=== PATIENT | female | born 1940 | race Hispanic/Latino ===

== ENCOUNTER 2017-01-07 15:11 | Inpatient (IN) | payer MEDICAID ==
[~2017-01-07] VITALS: Ht 162.6 cm; Wt 51.9 kg
[2017-01-07] VITALS (12 sets, daily range): BP systolic 85–126; BP diastolic 40–85; PULSE 80–90; RESP 14–20; O2SAT 96–100
[~2017-01-07 15:11] MED LIST: Ketamine 10 mg/mL 20 mL Inj ONE; Ondansetron 2 mg/mL 2 mL Inj ONE; Phenylephrine/NS 100 mCg/mL 10 mL Syringe IVPUSH ONE
--- NOTE | 2017-01-07 15:34 | ED.REPORT ---
HPI-General Illness Date of Service Jan 07, 2017 ED Provider: Eddie Bustillos MD Patient is a Comoran-speaking 76 year old female with a history of diabetes mellitus who presents to the ED via EMS with right hip pain after a ground level fall this afternoon. The patient tripped on a rug and landed on hardwood floor. Patient has been unable to ambulate or bear weight on her leg after the injury occurred. The patient typically ambulates steadily and does not regularly fall. She is normally self sufficient. The patient did not strike her head and denies loss of consciousness. She is not on any anticoagulating medications. Patient denies sustaining any other injuries. Nursing Notes Stated Complaint: RIGHT HIP PAIN Chief Complaint: Multiple Trauma/Fall Nursing Notes Reviewed: Yes Allergies: Coded Allergies: No Known Allergies (Verified , 01/07/17) Scheduled Cholecalciferol (Vitamin D3) (Vitamin D) 1,000 Unit Capsule 1,000 UNIT PO DAILY Glipizide (Glipizide) 10 Mg Tablet 10 MG PO BID Insulin Detemir (Levemir U100 Insulin Vial) 100 Unit/1 Ml Vial 15 UNIT SUBQ DAILY Lovastatin (Lovastatin) 20 Mg Tablet 20 MG PO HS Metformin (Metformin) 500 Mg Tablet 1,000 MG PO BID General Time Seen by MD: 15:34 Chief Complaint Other (right hip pain) Hx Obtained From: Patient Arrived By: Ambulance Sudden in Onset?: Yes Onset Occurred: Just prior to arrival Symptom Duration: Since onset Caused by: Fall on ground Location: : Hip right Quality: Painful Severity: Current: Moderate Severity: Maximum: Moderate Recent Healthcare: No recent doctor visit, No recent hospitalization Similar Sx Previous: No Past Medical History Past Medical History generally in good health Reports: Diabetes mellitus Past Surgical History left arm fracture Family History Reports: Coronary artery disease Smoking History Unknown if Ever Smoker Social History Other Social History: Good social support, Local resident Ambulatory Status Independent Review of Systems Full Review of Systems Cardiovascular: Denies: Chest pain GI: Denies: Abdominal pain Musculoskeletal: Reports: Extremity pain, Joint pain Neurologic: Denies: Change LOC, Headache Complete sys rev & neg: except as marked. Physical Exam Vital Signs Vital Signs Date Time Temp Pulse Resp B/P Pulse Ox O2 Delivery O2 Flow Rate FiO2 01/07/17 15:11 36.6 85 14 114/69 99 Room Air Initial VS: Reviewed Skin: Warm, Dry, No cyanosis Neurologic: Alert, Oriented, Nonfocal Psychiatric: Mood/affect normal, Behavior normal General/Constitutional: Awake, Alert, No acute distress Head / Eyes: Atraumatic, Normocephalic, PERRL ENT: Atraumatic, Airway patent Neck: Atraumatic, Supple, Non-tender Respiratory / Chest: Breath sounds NL, Breath sounds = bilat, No respiratory distress, No rales, No rhonchi, No wheezing, No chest tenderness, No chest wall deformity Cardiovascular: Heart rate NL, Regular rhythm, Heart sounds NL, Cap refill not delayed, Peripheral circulation NL (Good DP and PT pulses) Abdomen: Soft, Non-tender, No distention Upper Extremities Upper Extremity / MS: Atraumatic, Non-tender, No deformity Lower Extremity / Pelvis / MS: Neurologic intact, Vascular intact Right Hip: Positive: ROM reduced... (unable to flex or extend the hip), Tenderness present... (over the greater trochanter) Interpretation & Diagnostics Lab Results Interpretation Result Diagram: 01/07/17 1642 01/07/17 1642 Test 01/07/17 16:42 White Blood Count 8.0th/mm3 (3.8-10.1) Red Blood Count 4.17mil/mm3 (3.90-5.20) Hemoglobin 12.7g/dL (12.0-15.6) Hematocrit 39.3% (35.0-46.0) Mean Corpuscular Volume 94.2fL (81-100) Mean Corpuscular Hemoglobin 30.5pg (27.0-35.0) Mean Corpuscular Hemoglobin Concent 32.3% (32.0-37.0) Red Cell Distribution Width 12.5% (12.3-15.4) Platelet Count 244bil/L (150-400) Neutrophils (%) (Auto) 66.8% (40-74) Lymphocytes (%) (Auto) 23.7% (14-46) Monocytes (%) (Auto) 8.4% (4-12) Eosinophils (%) (Auto) 0.4% (0-5) Basophils (%) (Auto) 0.4% (0-3) Prothrombin Time 10.8sec (8.1-12.5) Prothromb Time International Ratio 1.01ratio Sodium Level 133mEq/L (134-144) Potassium Level 4.0mEq/L (3.5-5.2) Chloride Level 96mEq/L (97-108) Carbon Dioxide Level 21mmol/L (18-29) Blood Urea Nitrogen 17mg/dL (8-27) Creatinine 0.48mg/dL (0.57-1.00) Estimat Glomerular Filtration Rate 180mL/min (>59) Glucose Level 245mg/dL (60-99) Calcium Level 8.9mg/dL (8.5-10.1) Magnesium Level 2.1mg/dL (1.6-2.6) Total Bilirubin 0.2mg/dL (0.0-1.2) Aspartate Amino Transf (AST/SGOT) 28U/L (0-50) Alanine Aminotransferase (ALT/SGPT) 23U/L (0-32) Alkaline Phosphatase 84U/L (25-165) Total Protein 7.1g/dL (6.4-8.4) Albumin 3.5g/dL (3.4-5.0) Hold Gutierrez Top Tube Received (Received) ECG Interpretation Time: 17:45 Interpreted by: ED physician Normal ECG Interpretation: Normal ECG w/ rate of... (85), No acute ischemic changes X-Ray Chest Interpretation Chest Xray Interpretation: IMPRESSION: No acute process. Dictated by: Roosevelt Rodriguez M.D. on 01/07/2017 at 16:59 Approved by: Roosevelt Rodriguez M.D. on 01/07/2017 at 16:59 View: Portable Interpretation / Wet Read by: Interpret - Radiologist X-Ray Interpretation Xray Interpretation: IMPRESSION: Intertrochanteric hip fracture. Dictated by: Roosevelt Rodriguez M.D. on 01/07/2017 at 16:24 Approved by: Roosevelt Rodriguez M.D. on 01/07/2017 at 16:24 X-Ray Ordered: Hip right Interpretation / Wet Read by: Interpret - Radiologist Re-Eval/Medical Decision Med Decision/Clinical Course Patient is a Comoran-speaking 76 year old female with a history of diabetes mellitus who presents to the ED via EMS with right hip pain after a ground level fall this afternoon. The patient tripped on a rug and landed on hardwood floor. Patient has been unable to ambulate or bear weight on her leg after the injury occurred. The patient typically ambulates steadily and does not regularly fall. She is normally self sufficient. The patient did not strike her head and denies loss of consciousness. She is not on any anticoagulating medications. Patient denies sustaining any other injuries. Here in the emergency department the patient is afebrile, hemodynamically stable and in no significant distress though her right leg is slightly foreshortened and externally rotated. She is neurovascularly intact in the right lower extremity. On x-ray there is a comminuted, moderately displaced intertrochanteric hip fracture. No suspicious bony lesions. The visualized pelvic ring appears intact. Patient's pain was treated with IV hydromorphone and she was given Zofran for nausea. The patient was placed on maintenance fluids. Preoperative labs including CBC, CMP and coagulation studies were unremarkable. Patient was discussed with orthopedic surgery Dr. Sun who will take her for operative management later this evening. She was discussed with the admitting hospitalist and transferred in stable condition in consultation with orthopedic surgery. No evidence of significant head trauma, no evidence of acute infectious process, no evidence of other associated significant traumatic injuries. Transferred in stable condition. Source of Hx: Old records Time of Eval: 17:00 Re-Evaluation/Progress Note: Patient was informed that she sustained a hip fracture. She will need to be admitted to the hospital for surgery. Patient understands and agrees with this plan. All questions were addressed. Consultation #1: Referral / Consult Name: Luisito Sun DO Consulted With: Orthopedic Call Returned at: 16:50 Welder Fitter Apprentice: Will see patient, Agrees with eval, Agrees with plan Note: Spoke with Dr. Sun, orthopedic surgeon, about the patient's case. He agrees to take the patient to surgery. Consultation #2: Referral / Consult Name: Cordelia Ramirez DO Consulted With: Hospitalist Call Returned at: 16:55 Welder Fitter Apprentice: Will see patient, Agrees with eval, Agrees with plan, Accepts admit Note: Spoke with Dr. Ramirez, hospitalist, who agrees to accept admit. Counseled Regarding: Diagnosis, Lab results, Need for admission Discharge & Departure Primary Impression: Intertrochanteric fracture of right hip Encounter type: initial encounter Fracture type: closed Qualified Code: S72.141A - Displaced intertrochanteric fracture of right femur, initial encounter for closed fracture Additional Impressions: Fall from ground level Right hip pain Disposition: ADMITTED TO HOSPITAL Discharge Condition All VS Reviewed: Yes Condition: Stable Referrals: [facility] (PCP) Arabellaibgabe Attestation Portions of this note were transcribed by Anushka Álvarez. I, Dr. Bustillos personally performed the history, physical exam and medical decision-making; I reviewed and confirmed the accuracy of the information in the transcribed note. Signed by: Lanie Buckley, 01/08/2017 0004 copies to: [facility] Eddie Bustillos MD Jan 07, 2017 15:34 Anushka Álvarez Jan 07, 2017 16:53
[2017-01-07] MEDS ORDERED: HYDROmorphone 0.5 mg/0.5 mL iSecure Syringe IVPUSH ONE (15:50)
--- NOTE | 2017-01-07 16:26 | DRSVH ---
PROCEDURE: X-RAY RIGHT HIP COMPLETE, MINIMUM TWO VIEWS ([id number]) INDICATIONS: fall, pain TECHNIQUE: 2 views of the hip were acquired. COMPARISON: None. FINDINGS: Bones: There is a comminuted, moderately displaced intertrochanteric hip fracture. No suspicious bony lesions. The visualized pelvic ring appears intact. Soft tissues: No suspicious soft tissue calcifications or masses. IMPRESSION: Intertrochanteric hip fracture. Dictated by: Roosevetl Rodriguez M.D. on 01/07/2017 at 16:24 Approved by: Roosevelt Rodriguez M.D. on 01/07/2017 at 16:24
[2017-01-07] MEDS ORDERED: 0.9% Sodium Chloride 1,000 ML IV ONE (16:32)
[2017-01-07] MEDS ORDERED: Ondansetron 2 mg/mL 2 mL Inj IVPUSH PRN ×3 (16:35→23:00)
[2017-01-07] MEDS ORDERED: Ondansetron 2 mg/mL 2 mL Inj IVPUSH ONE (16:35)
[2017-01-07] MEDS ORDERED: Alum-Mag Hydrox-Simeth 30 mL Suspension PO PRN (16:35)
[2017-01-07 16:51] LABS: BASOPHILS % (AUTO) 0.4 % (0-3); EOSINOPHILS % (AUTO) 0.4 % (0-5); MONOCYTES % (AUTO) 8.4 % (4-12); Mean Corpuscular Hemoglobin 30.5 pg (27.0-35.0); Mean Corpuscular Volume 94.2 fL (81-100); NEUTROPHILS % (AUTO) 66.8 % (40-74); Platelet Count 244 bil/L (150-400)
--- NOTE | 2017-01-07 17:00 | DRSVH ---
PROCEDURE: X-RAY CHEST ONE VIEW, PORTABLE ([id number]) INDICATIONS: pre-op TECHNIQUE: One view of the chest was acquired. COMPARISON: [facility], , CHEST 2VW, 01/12/2015, 11:15. FINDINGS: Surgical changes and devices: None. Lungs and pleura: No pleural effusions or pneumothorax. Calcified granuloma within the right midlung laterally is unchanged. Lungs are otherwise clear. Mediastinum: Mediastinal contours appear normal. Heart size is normal. Bones and chest wall: No suspicious bony lesions. Overlying soft tissues appear unremarkable. IMPRESSION: No acute process. Dictated by: Roosevlet Rodriguez M.D. on 01/07/2017 at 16:59 Approved by: Roosevelt Rodriguez M.D. on 01/07/2017 at 16:59
[2017-01-07 17:11] LABS: INR 1.01 ratio
[2017-01-07 17:17] LABS: Magnesium 2.1 mg/dL (1.6-2.6)
--- NOTE | 2017-01-07 17:35 | PCM.HPANE ---
Patient Data Surgeon Admitting Provider: Attending Provider: Primary Care Physician:[facility] Other Provider: Reason for Visit Right Hip Pain Ht/WT & BMI Height (Feet): 5 Height (Inches): 3 Weight (Kilograms): 54.55 Body Mass Index Allergies Coded Allergies: No Known Allergies (Verified , 01/07/17) Past Anesthesia History Anesthesia History: Denies:: Abnormal Airway, Difficult Intubation Diabetes History Hx Diabetes?: Yes (IDDM) MRSA MRSA: No Medications Hypertension Medication: No Home Meds Incl Beta Dorinda: No History History of ENT Problems?: No HEENT History: Denies:: Abnormal Airway Difficult Intubation Denture Type: None Teeth Condition: Within Normal Limits Hx of Heart Problems?: No Cardiovascular History: Denies:: AICD Abdominal Aortic Aneurism Atrial Fibrillation Cardiac Surgery Chest Pain Congestive Heart Failure Coronary Artery Disease Edema Heart Murmur Hypertension Irregular Heartbeat Pacemaker Peripheral Vascular Rheumatic Fever Thrombophlebitis Valvular Heart Disease Hx of Respiratory Problem?: No Respiratory History: Denies:: Asthma COPD Chest Surgery Cough Dyspnea Emphysema Hemoptysis Oxygen Administration Pneumonia Pulmonary Embolism Tuberculosis Use of C-PAP Machine Use of Inhalers / NEBS Hx Neurologic Problems?: No Neurological History: Denies:: Alzheimer's Disease CVA Dementia Dizziness Headaches Multiple Sclerosis Parkinson's Disease Peripheral Neuropathy Seizures TIA Hx of GI Problems?: No Gastrointestinal History: Denies:: Cirrhosis Diverticulitis Gall Bladder Disease Gastroesphageal Reflux Gastrointestinal Bleeding Heartburn Hepatitis Hiatal Hernia Liver Disease Rectal Bleeding Hx of Problems?: No Genitourinary History: Denies:: HX of Hemodialysis Kidney Stones Urinary Tract Infection HX of Peritoneal Dialysis: No Female Hx: Denies:: Currently Endometriosis Pelvic Inflammatory Problems with Breasts? Skin History: Denies:: History Skin Disorders? Pressure Ulcers Hx Musculoskeletal Problems?: Yes Musculoskeletal History: Denies:: Back Injury Degenerative Joint Fibromyalgia Joint Replacement Musculoskeletal Trauma Myasthenia Gravis Osteoarthritis Rheumatoid Arthritis Systemic Lupus Other History/Comment hip fx Hx of Psycho/Social Problems?: No Psycho Social History: Denies:: Anxiety Bipolar Disorder Hx Depression Suicide Attempt Hx Surgeries?: Yes (LT ARM FX AND SHOULDER, ) Hx Diabetes: No (IDDM) Hx Alcohol Use: NoHx Substance Use: No Stop/Bang Treated for Sleep Apnea?: No Do You Have a CPAP Machine?: No Risk Assessment Category Category 1A: Patient has history of documented sleep apnea, and HAS NOT received any narcotic, sedative or anesthesia administration during this stay. Category 1B: Patient has history of documented sleep apnea, and HAS received any narcotic , sedative or anesthesia administration during this stay Category 2: Patient has SUSPECTED Obstructive Sleep Apnea, and HAS received any narcotic , sedative or anesthesia administration during this stay. Category 3: Patient has SUSPECTED Obstructive Sleep Apnea and HAS NOT received narcotic, sedative or anesthesia administration during this stay. Category 4: Outpatient in Procedural Areas with known sleep apnea or who screen positive for High Risk via the STOP/BANG questionnaire. Exam Exam Vital Signs Vital Signs Date Time Temp Pulse Resp B/P Pulse Ox O2 Delivery O2 Flow Rate FiO2 01/07/17 15:11 36.6 85 14 114/69 99 Room Air General Appearance: Alert, Oriented X3, Cooperative, Mild Distress HEENT/AIRWAY: MP 2 Lungs: Clear to Auscultation, Normal Air Movement Heart: Exam Unremarkable, Regular Rate/Rhythm, No Murmurs/Rubs/Gallops Meds/Labs/Diagnostics Admission Meds Current Medications Hydromorphone HCl (Dilaudid Inj) 0.5 mg ONCE ONCE IVPUSH Last administered on 01/07/17t 16:19; Start 01/07/17 at 15:50; Stop 01/07/17 at 15:51; Status DC Labs Test 01/07/17 16:42 White Blood Count 8.0th/mm3 (3.8-10.1) Red Blood Count 4.17mil/mm3 (3.90-5.20) Hemoglobin 12.7g/dL (12.0-15.6) Hematocrit 39.3% (35.0-46.0) Mean Corpuscular Volume 94.2fL (81-100) Mean Corpuscular Hemoglobin 30.5pg (27.0-35.0) Mean Corpuscular Hemoglobin Concent 32.3% (32.0-37.0) Red Cell Distribution Width 12.5% (12.3-15.4) Platelet Count 244bil/L (150-400) Neutrophils (%) (Auto) 66.8% (40-74) Lymphocytes (%) (Auto) 23.7% (14-46) Monocytes (%) (Auto) 8.4% (4-12) Eosinophils (%) (Auto) 0.4% (0-5) Basophils (%) (Auto) 0.4% (0-3) Prothrombin Time 10.8sec (8.1-12.5) Prothromb Time International Ratio 1.01ratio Sodium Level 133mEq/L (134-144) Potassium Level 4.0mEq/L (3.5-5.2) Chloride Level 96mEq/L (97-108) Carbon Dioxide Level 21mmol/L (18-29) Blood Urea Nitrogen 17mg/dL (8-27) Creatinine 0.48mg/dL (0.57-1.00) Estimat Glomerular Filtration Rate 180mL/min (>59) Glucose Level 245mg/dL (60-99) Calcium Level 8.9mg/dL (8.5-10.1) Magnesium Level 2.1mg/dL (1.6-2.6) Total Bilirubin 0.2mg/dL (0.0-1.2) Aspartate Amino Transf (AST/SGOT) 28U/L (0-50) Alanine Aminotransferase (ALT/SGPT) 23U/L (0-32) Alkaline Phosphatase 84U/L (25-165) Total Protein 7.1g/dL (6.4-8.4) Albumin 3.5g/dL (3.4-5.0) Plan Impression Patient chart reviewed, patient interviewed and anesthestic plan with risks, benefits, and alternatives discussed, and informed consent obtained. ASA Physical Status: ASA2 Mod Systemic Disease Anesthetic Plan: GA, SAB Bene/Risks/Altern/Consents: Yes HP Complete Prior to Induction: Yes Leo Kathleen MD Jan 07, 2017 17:35
[2017-01-07] MEDS ORDERED: Lactated Ringer's 1,000 ML IV ONE (17:37)
[2017-01-07] MEDS ORDERED: Glucose 40% Oral Gel 15 Gm Tube PO PRN (18:55)
[2017-01-07] MEDS ORDERED: HYDROmorphone 0.5 mg/0.5 mL iSecure Syringe IVPUSH PRN (18:55)
--- NOTE | 2017-01-07 19:56 | PCM.HPMED ---
Subjective Date of Service Jan 07, 2017 Primary Provider: Admitting Physician: Cordelia Ramirez DO Primary Care Physician: [facility] Attending Physician: Cordelia Ramirez DO Allergies Coded Allergies: No Known Allergies (Verified , 01/07/17) PMH Social History Hx Alcohol Use: No Hx Substance Use: No Exam Vital Signs Vital Sign - Last Date Time Temp Pulse Resp B/P Pulse Ox O2 Delivery O2 Flow Rate FiO2 01/07/17 19:03 36.7 90 18 121/56 98 Room Air Lab and Diagnostics Result Diagram: 01/07/17 1642 01/07/17 1642 Assessment & Plan HPI: Patient is a 76-year-old Pakistani-speaking female who presents from home status post fall. Patient stated that she was walking around the house and tripped over the carpet and ended up falling on her right hip. The patient's family took her to the emergency room immediately and at that time they found that she had an intertrochanteric fracture of the right hip. Patient reports right hip pain and states that she was not dizzy, does not have any chest pain, or shortness of breath. Home medications: Patient is unsure of her home medications the family will bring in her medications she states that she takes something orally for diabetes along with insulin. Allergies: None PMHx: Diabetes SHx: None FHx: Family history of diabetes and heart disease SocHx: Tobacco history: Patient denies Alcohol use: Patient denies Drug use: Patient denies ROS: A complete review of systems was performed or attempted to be performed. Please see HPI for pertinent positives, all other systems are negatives. Physical Exam: GEN: Patient was awake, alert, responding appropriately to questions HEENT: Pupils equal round and reactive to light, extraocular eye muscles intact , Neck soft supple, trachea midline, nomocephalic/atraumatic CV: +S1/S2, regular rate and rhythm, no murmurs auscultated Respiratory: CTAB, no wheezes, rales, rhonchi GI: +bowel sounds x4, soft, compressible, nontender to palpation Musculoskeletal: + Right lower extremity tenderness to palpation in the inguinal region, right lower extremity study and external rotation EXT: no clubbing, cyanosis, edema Neuro: Cranial nerves II-XII grossly intact Psych: mood and affect were appropriate Assessment and Plan 76-year-old female with a right intertrochanteric fracture Right intertrochanteric fracture -Orthopedics consulted (Dr. Carver) -Patient is currently nothing by mouth -Pain control with Dilaudid -Patient likely to go to surgery tonight Diabetes -Follow up hemoglobin A1c -Follow up with patient's home medications -Insulin sliding scale mild FEN/GI -Patient is currently nothing by mouth status post surgery she can resume diabetic diet -Follow up labs in the morning -Continue IV fluids DVT prophylaxis -None patient will go to surgery today will follow up with DVT prophylaxis status post surgery Code Status: Full code Disposition due to patient's current condition she will stay greater than 2 midnight Time spent Greater than 45 minutes Cordelia Ramirez DO Jan 07, 2017 19:56
--- NOTE | 2017-01-07 20:05 | PCM.ADCARE ---
Advance Care Planning Note Purpose of Encounter: Goals of care and CODE STATUS Parties in Attendance: The patient, Dr. Ramirez, her [id number], multiple grandchildren CODE STATUS: At this time the patient and her family understands her current condition and wishes to be full code. Including CPR, antibiotics, fluids, and intubation with mechanical ventilation. The patient is full code Time Spent Adv.Care Plannin minutes Cordelia Ramirez DO Jan 07, 2017 20:05
[2017-01-07] MEDS ORDERED: Ropivacaine-PF 0.5% 30 mL Inj INFILTRATE ONE (21:49)
[2017-01-07] MEDS ORDERED: CHOL100045 PO (21:56)
[2017-01-07] MEDS ORDERED: LOVA20TA PO (21:56)
[2017-01-07] MEDS ORDERED: METF500T4 PO (21:56)
[2017-01-07] MEDS ORDERED: INSU100V4 SUBQ ×2 (21:56→22:04)
[2017-01-07] MEDS ORDERED: GLIP10TA10 PO (21:56)
[2017-01-07] MEDS: Insulin LISPRO 300 Unit/3 mL Inj SUBQ SCH ×2 (22:00→23:05)
[2017-01-07] MEDS ORDERED: Lactated Ringer's 1,000 ML IV SCH (22:19)
[2017-01-07] MEDS ORDERED: Lactated Ringer's 500 ML IV PRN (22:19)
--- NOTE | 2017-01-07 22:19 | NUR ---
ADMIT: Pt. pt. in her room she was already in when I arrived surrounded by multiple family members. She arrived from the ED via stretcher. She was awake and talking. She explained that she was at home and tripped on a floor mat and fell, she family called 911 and brought her to the ED. No admit done yet. At 2009 Blood sugar [id number]. Pt. was taken to the OR at 2014.
[2017-01-07] MEDS ORDERED: Dexamethasone 4 mg/mL Inj IVPUSH PRN (22:20)
[2017-01-07] MEDS ORDERED: HYDROmorphone 1 mg/mL Inj IVPUSH PRN (22:20)
[2017-01-07] MEDS ORDERED: EPHEDrine Sulfate 50 mg/mL Inj IVPUSH PRN (22:20)
[2017-01-07] MEDS ORDERED: fentaNYL-PF 50 mCg/mL 2 mL Inj IVPUSH PRN (22:20)
[2017-01-07] MEDS ORDERED: Phenylephrine 10,000 mCg/mL Inj IVPUSH PRN (22:20)
[2017-01-07] MEDS ORDERED: MetoCLOpramide 5 mg/mL 2 mL Inj IVPUSH PRN (22:20)
[2017-01-07] MEDS ORDERED: Ketorolac 15 mg/mL Inj IVPUSH PRN (23:00)
[2017-01-07] MEDS ORDERED: Magnesium Hydroxide 10 mL Oral Concentration PO PRN (23:00)
[2017-01-07] MEDS ORDERED: Polyethylene Glycol (PEG) 17 Gm Powder PO PRN (23:00)
[2017-01-07] MEDS ORDERED: Acetaminophen IV 1,000 MG in IV Premix 1 EACH IV PRN (23:00)
[2017-01-07] MEDS ORDERED: diphenhydrAMINE 25 mg Capsule PO PRN (23:00)
--- NOTE | 2017-01-07 23:37 | CONS ---
[address] [address] CONSULTATION REPORT PATIENT: ALFREDITO CASE : 1940 MR#: [id number] ADMIT: 01/07/2017 JOB ID: [id number] DATE OF SERVICE: 01/07/2017 CHIEF COMPLAINT: Right hip pain. HISTORY OF PRESENT ILLNESS: The patient is a 76-year-old, Togolese-speaking female seen with an commercial instructor supervisor who was getting up from the bathroom when she fell onto her right hip. She was unable to ambulate after the fall and had immediate onset of severe acute pain in the hip and thigh. She normally ambulates without aids, and is fairly independent, although her family states that she generally does not walk up and down stairs. She lives with her son. PAST MEDICAL HISTORY: Significant for diabetes mellitus and proximal humerus fracture. ALLERGIES: No known drug allergies. MEDICATIONS: 1. Glipizide. 2. Levemir insulin. 3. Lovastatin. 4. Metformin. PHYSICAL EXAMINATION: Blood pressure 121/56, pulse rate 90, respirations 18, temperature 36.7. She is alert and cooperative, in no acute distress. Right hip has pain with any attempt at range of motion. Her skin overlying the hip is intact. Her leg is shortened and externally rotated. She is able move her toes. Sensation of the foot is intact. Her foot is warm, pink, and well perfused with dorsalis pedis pulse +2. No calf pain or tenderness. IMAGING: X-rays demonstrate a right intertrochanteric fracture with longitudinal subtrochanteric extension. ASSESSMENT: Right intertrochanteric femur fracture with subtrochanteric extension. PLAN: We discussed treatment options for this, and I recommended a right hip nailing. We discussed the risks, benefits, and possible complications of surgery. All questions were answered and she wished to proceed. Will plan for this today as she has been n.p.o. since noon, and will plan to use Lovenox for DVT prophylaxis postoperatively and [place] 5/325 for pain.
--- NOTE | 2017-01-07 23:49 | OP ---
[address] [address] OPERATIVE REPORT PATIENT: ALFREDITO CASE : 1940 MR#: [id number] ADMIT: 01/07/2017 JOB ID: [id number] DATE OF SURGERY: 01/07/2017 PREOPERATIVE DIAGNOSIS(ES): Right intertrochanteric femur fracture with subtrochanteric extension. POSTOPERATIVE DIAGNOSIS(ES): Right intertrochanteric femur fracture with subtrochanteric extension. PROCEDURE: Right hip intramedullary nailing, long nail. SURGEON: Luisito Sun DO. ANESTHESIA: Spinal. INDICATIONS: The patient is a 76-year-old female who fell today at home sustaining a right proximal femur fracture. We discussed treatment options for this and she wished to proceed with right hip nailing. We discussed risks, benefits and possible complications of surgery. All questions were answered. She wished to proceed. PROCEDURE IN DETAIL: The patient was brought to the operating room. She was given preoperative antibiotic and spinal anesthetic. A preoperative time-out was performed. She was placed onto the fracture table and the fracture was reduced with a combination of traction, internal rotation and adduction. The right hip was sterilely prepped and draped. An incision was made just proximal to the greater trochanter in line with the femur. Dissection was carefully carried through subcutaneous tissue. Electrocautery was used for hemostasis. A guidewire was placed into the tip of the greater trochanter at the junction of anterior 1/3 and posterior 2/3, and viewed in the lateral projection. This was advanced down into the femur and a proximal reamer was then used. A ball-tipped guidewire was then threaded down into the intramedullary femur. This was measured and felt that a 360 mm nail would be appropriate. This was then reamed sequentially up to 12.5 and I elected to use an 11 x 125 degree Synthes TFN-Advanced nail. The nail was advanced down into the femur and did have some resistance. I confirmed appropriate nail placement with x-ray guidance. She was noted to have a significant bow in her femur and the nail was to some degree resting at the anterior cortex of the femur distally but did not perforate fortunately. A lag screw was then inserted into the center-center position of the femoral head and tightened with set screw. Next, a distal lock was performed using a perfect fond du lac technique and a single distal locking screw was placed, had excellent purchase. The final confirmation was made with biplane fluoroscopy. The wounds were irrigated and then closed with 0 Vicryl to close the fascia, 2-0 to close the subcu. The skin was closed with masood. Naropin was added as an adjunct local anesthetic. Sterile dressings were applied. Patient tolerated the procedure well. Blood loss was about 75 cc. POSTOPERATIVE PROTOCOL: Have the patient remain toe-touch weightbearing on the right lower extremity for likely a period of about four weeks considering the subtrochanteric extension. I would like her to use Lovenox for DVT prophylaxis for 21 days postoperatively.
[2017-01-08 00:06] VITALS: BP 118/62; PULSE 83; RESP 20; O2SAT 98
[2017-01-08] MEDS ORDERED: Insulin LISPRO 300 Unit/3 mL Inj SUBQ ONE (00:15)
--- NOTE | 2017-01-08 00:29 | NUR ---
POST OP: Pt. returned from PACU at 2349 awake, alert and talking. Denies pain. Has IV LR infusing will change to NS at 100 ml/hr as per MD orders. VSS taken upon return from PACU. Cary to gravity with small amt. of clear urine. Bulky dressing on right hip and a smaller dressing on right knee all CDI. No sensation, unable to move right leg or right foot. Good capillary refill, excellent pulses, warm to the touch. A & O. On going care.
[2017-01-08] MEDS: Sodium Chloride LOK Flush 10 mL Syringe IV SCH ×3 (00:30→15:50)
[2017-01-08] MEDS: 0.9% Sodium Chloride 1,000 ML IV SCH ×3 (02:37→23:03)
[2017-01-08 05:42] LABS: BASOPHILS % (AUTO) 0.2 % (0-3); EOSINOPHILS % (AUTO) 0 % (0-5); MONOCYTES % (AUTO) 10.7 % (4-12); Mean Corpuscular Hemoglobin 31.2 pg (27.0-35.0); Mean Corpuscular Volume 95.8 fL (81-100); NEUTROPHILS % (AUTO) 67.5 % (40-74); Platelet Count 207 bil/L (150-400)
[2017-01-08] MEDS: CeFAZolin Inj 1 GM in IV Premix 1 EACH IV SCH ×2 (05:51→13:59)
[2017-01-08 06:29] VITALS: BP 117/59; PULSE 87; RESP 17; O2SAT 97
[2017-01-08] MEDS ORDERED: Insulin GLARgine 100 Unit/mL Syringe SUBQ SCH (08:30)
[2017-01-08] MEDS: Senna-Docusate 8.6-50 mg Tablet PO SCH ×2 (09:23→21:11)
[2017-01-08] MEDS: Insulin LISPRO 300 Unit/3 mL Inj SUBQ SCH ×4 (09:30→23:17)
--- NOTE | 2017-01-08 11:38 | PCM.PNORTH ---
Subjective Date of Service: Jan 08, 2017 Visit Information: Reason for Visit Right Hip Fracture Surgery/Surgery Date Post-Op Day # Date of Admission: Jan 07, 2017 at 18:18 Hospital Day # Subjective Status post day #1 right hip IM nail. Patient states that she does have quite a bit of discomfort to the right hip. Especially when she is moving. Patient is self-pay and would like to know cost of different interventions including [facility] facilities. milk powder grinder used today during the entire encounter. Postop General: No Complaints, No Shortness of Breath, No Chest Pain Objective Exam Objective Patient is alert and oriented 3. Answering questions appropriately. Lying down in bed and not in any acute distress today. Patient does have some increased discomfort when touching the hip or manipulating the leg which is minimal. Dressing is clean dry and intact. Patient able to wiggle toes. Calf is soft and non-tender, pulses intact, sensation is full. Hemoglobin 9.6, hematocrit 29.5. We will continue to watch these. Vital Signs and I/O Vital Sign - Last Date Time Temp Pulse Resp B/P Pulse Ox O2 Delivery O2 Flow Rate FiO2 01/08/17 06:29 36.8 87 17 117/59 97 Room Air 01/07/17 23:20 2 Intake and Output 01/07/17 01/07/17 01/08/17 Cumulative From/Thru 15:00 23:00 07:00 01/07/17 15:11 - 01/08/17 06:29 Intake Total 1000 ml 1844 ml 2844 ml Output Total 1400 ml 1400 ml Balance 1000 ml 444 ml 1444 ml Intake Oral 400 ml 400 ml IV Total 1000 ml 1444 ml 2444 ml Output Urine Total 1400 ml 1400 ml # Bowel Movements 0 0 Lab & Micro Results Laboratory Tests Test 01/07/17 16:42 01/07/17 18:32 01/08/17 05:17 White Blood Count 8.0th/mm3 (3.8-10.1) 9.0th/mm3 (3.8-10.1) Red Blood Count 4.17mil/mm3 (3.90-5.20) 3.08mil/mm3 (3.90-5.20) Hemoglobin 12.7g/dL (12.0-15.6) 9.6g/dL (12.0-15.6) Hematocrit 39.3% (35.0-46.0) 29.5% (35.0-46.0) Mean Corpuscular Volume 94.2fL (81-100) 95.8fL (81-100) Mean Corpuscular Hemoglobin 30.5pg (27.0-35.0) 31.2pg (27.0-35.0) Mean Corpuscular Hemoglobin Concent 32.3% (32.0-37.0) 32.5% (32.0-37.0) Red Cell Distribution Width 12.5% (12.3-15.4) 12.3% (12.3-15.4) Platelet Count 244bil/L (150-400) 207bil/L (150-400) Neutrophils (%) (Auto) 66.8% (40-74) 67.5% (40-74) Lymphocytes (%) (Auto) 23.7% (14-46) 21.5% (14-46) Monocytes (%) (Auto) 8.4% (4-12) 10.7% (4-12) Eosinophils (%) (Auto) 0.4% (0-5) 0% (0-5) Basophils (%) (Auto) 0.4% (0-3) 0.2% (0-3) Prothrombin Time 10.8sec (8.1-12.5) Prothromb Time International Ratio 1.01ratio Sodium Level 133mEq/L (134-144) 141mEq/L (134-144) Potassium Level 4.0mEq/L (3.5-5.2) 4.2mEq/L (3.5-5.2) Chloride Level 96mEq/L (97-108) 107mEq/L (97-108) Carbon Dioxide Level 21mmol/L (18-29) 21mmol/L (18-29) Blood Urea Nitrogen 17mg/dL (8-27) 12mg/dL (8-27) Creatinine 0.48mg/dL (0.57-1.00) 0.43mg/dL (0.57-1.00) Estimat Glomerular Filtration Rate 180mL/min (>59) 204mL/min (>59) Glucose Level 245mg/dL (60-99) 186mg/dL (60-99) Hemoglobin A1c 9.4% (4.8-5.6) Calcium Level 8.9mg/dL (8.5-10.1) 8.1mg/dL (8.5-10.1) Magnesium Level 2.1mg/dL (1.6-2.6) Total Bilirubin 0.2mg/dL (0.0-1.2) 0.2mg/dL (0.0-1.2) Aspartate Amino Transf (AST/SGOT) 28U/L (0-50) 24U/L (0-50) Alanine Aminotransferase (ALT/SGPT) 23U/L (0-32) 17U/L (0-32) Alkaline Phosphatase 84U/L (25-165) 67U/L (25-165) Total Protein 7.1g/dL (6.4-8.4) 5.3g/dL (6.4-8.4) Albumin 3.5g/dL (3.4-5.0) 2.9g/dL (3.4-5.0) Hold Gutierrez Top Tube Received (Received) Hold Urine Received (Received) Result Diagram: 01/08/1751601/08/17516 Assessment & Plan Impression Status post day #1 right hip IM nail. Patient is stable she does have some pain and it is controlled as long as she is not moving the hip. Problems: Plan Patient will begin working with physical therapy today. Patient will remain toe -touch weightbearing for 4 weeks on the right hip. Patient will utilize Lovenox 40 mg subcutaneous daily for 21 days, then convert to aspirin 325 mg by mouth twice a day for an additional 3 weeks for DVT prophylaxis. We will plan to change the dressing tomorrow. Patient will receive oral narcotics while in the hospital to manage pain control. Patient will remain in the hospital for 1-2 days. We will continue to watch her hemoglobin and hematocrit as well as her ambulating status with physical therapy to determine appropriate discharge of home versus SNF. Edmundo Herrera PA-C Jan 08, 2017 11:38
[2017-01-08 12:13] VITALS: BP 150/70; PULSE 74; RESP 16; O2SAT 96
[2017-01-08] MEDS: HYDROmorphone 1 mg/mL Inj IVPUSH PRN (16:37)
[2017-01-08 18:06] VITALS: BP 97/55; PULSE 96; RESP 16; O2SAT 98
--- NOTE | 2017-01-08 18:35 | NUR ---
Activity Interpreters used throughout shift and pt agreeable to care. Pt up with PT to stand at bedside. Had increasing pain over course of day and was 7/10 before would finally take pain medications. IV medications given and pt had zero pain when reassessed. Ice pack in place, strong pedal pulse, extremity warm and good cap refill, dressing CDI. Blood sugars were high during shift and insulin was given. Cary in place since pt was sleepy during shift and was back from surgery late. Bed in low, call light in reach.
[2017-01-08 20:05] VITALS: BP 129/64; PULSE 103; RESP 17; O2SAT 96
--- NOTE | 2017-01-08 21:07 | PCM.PNMED ---
Subjective Date of Service Jan 08, 2017 Subjective Patient is talking on the phone with relative, she only speaks Somali. Could not confirm being on a statin at home. Her daughter offers to regarding her home medications tomorrow. Patient is endorsing adequate pain control and Dilaudid. Still has a Cary. Not moving a lot per family. Denies overnight fevers chills abdominal pain. Tolerating diet okay Exam Vital Signs Vital Sign - Last Date Time Temp Pulse Resp B/P Pulse Ox O2 Delivery O2 Flow Rate FiO2 01/08/17 00:06 36.7 83 20 118/62 98 Room Air 01/07/17 23:20 2 Intake and Output 01/07/17 01/07/17 01/08/17 Cumulative From/Thru 15:00 23:00 07:00 01/07/17 15:11 - 01/07/17 23:35 Intake Total 1000 ml 800 ml 1800 ml Output Total 300 ml 300 ml Balance 1000 ml 500 ml 1500 ml Intake IV Total 1000 ml 800 ml 1800 ml Output Urine Total 300 ml 300 ml Exam General: NAD, laying in bed, some what dyspneic male HEENT: NCAT, poor dentition Eyes: Archie conjunctivae. No ptosis, PERRL Neck: No masses, trachea midline, no thyromegaly Lungs: CTA with normal respiratory effort, no crackles or wheezes CV: RRR, no murmurs/rubs/gallops, normal PMI GI: Soft, non-tender with no hepatosplenomegaly MSK: She is able to move her feet, between her toes. Neuro: Denies altered sensation in feet Vascular: Her feet are warm, though no pulses could be palpated Skin: Warm and dry. No rash, lesions or ulcers Psych: A&O X3, with approprate affect IVs and Medications IV Fluids Normal saline 70 mL per hour Medications Reviewed: Medications were reviewed in detail Lab and Diagnostics Result Diagram: 01/07/17 1642 01/07/17 1642 Assessment & Plan Assessment and Plan 76-year-old female with a right intertrochanteric fracture Right intertrochanteric fracture, present on admission., -Orthopedics consulted (Dr. Carver), she underwent surgical repair last night -Patient is currently on diabetic diet -Pain control with Dilaudid -. Postop Day #1 -- Encouraged incentive spirometry -- Remove Cary tomorrow a.m. -- Encouraged PT/OT, patient states she plans to go home with son Diabetes -Follow up hemoglobin A1c: 9.4 -Follow up with patient's home medications -Insulin sliding scale mild, also added Lantus 10 units daily -- Plan to restart metformin tomorrow, verify atorvastatin with daughter FEN/GI -she can resume diabetic diet -Follow up labs in the morning -Continue IV fluids: Reduced to 70 mL per hour as she is tolerating diet DVT prophylaxis Lovenox 40 subcutaneous daily Code Status: Full code Disposition due to patient's current condition she will stay greater than 2 midnight VTE Prophylaxis: Sub-Q Enoxaparin VTE Mechanical Devices: Intermittant Pneumatic CD Zara Enamorado DO Jan 08, 2017 05:33
[2017-01-09] MEDS: Sodium Chloride LOK Flush 10 mL Syringe IV SCH ×4 (00:30→22:29)
[2017-01-09] MEDS: HYDROcodone-APAP 5-325 mg Tablet PO PRN ×4 (01:11→21:34)
[2017-01-09] MEDS: hydrOXYzine Pamoate 25 mg Capsule PO PRN ×4 (01:12→21:34)
--- NOTE | 2017-01-09 03:47 | NUR ---
Pain pt pain has been frequently reassessed as pt is reserved and doesn't show pain in her body language. interpreters have been used to make sure patient understands what pain medicine is available to her. for most of the night she has denied pain. she did request pain medication once and was given one vicodin and a vistaril. upon reassessment pt said she was comfortable and did not need any more medication. she has been sleeping appearing comfortable. pt dangle on edge of bed to talk with family but declined getting up out of bed. pt has been made aware that her ruano catheter will be removed this AM and then she needs to walk, she is agreeable to this is. care continues.
[2017-01-09 05:43] LABS: Mean Corpuscular Hemoglobin 30.3 pg (27.0-35.0)
[2017-01-09 05:50] VITALS: BP 111/63; PULSE 84; RESP 17; O2SAT 99
[2017-01-09] MEDS: Senna-Docusate 8.6-50 mg Tablet PO SCH ×2 (08:55→21:34)
[2017-01-09] MEDS: Insulin LISPRO 300 Unit/3 mL Inj SUBQ SCH ×4 (08:57→22:24)
--- NOTE | 2017-01-09 09:02 | PCM.PNORTH ---
Subjective Date of Service: Jan 09, 2017 Visit Information: Reason for Visit Right Hip Fracture Surgery/Surgery Date Post-Op Day # Date of Admission: Jan 07, 2017 at 18:18 Hospital Day # Subjective Found patient awake and alert this morning. No complaints of pain. Met RN and extension trigger. At the room and had interpretive services throughout my contact with patient. Through the nurse I have come to understand that the patient will be provided. [facility] facility and is unable to do this so I anticipate she will discharged to home. Postop General: No Complaints, No Shortness of Breath, No Chest Pain Pain Management: PO Objective Exam Objective Alert and oriented 3 and pleasant. Hemoglobin 8.4, hematocrit 26.6 Patient on IV fluids at 70ml per hour per hospitalist service. Interoperative dressing clean dry and intact. Interoperative dressing is changed to postop dressing. Wounds are in good condition. Toe wiggle and sensation intact at right lower extremity distally Calf and thigh are soft and nontender. Cary is absent. Bilateral SCDs are off the legs and not functioning. I have asked nursing to replace these this morning. Patient has stood with physical therapy at bedside on 01/08/2017. Vital Signs and I/O Vital Sign - Last Date Time Temp Pulse Resp B/P Pulse Ox O2 Delivery O2 Flow Rate FiO2 01/09/17 05:50 36.7 84 17 111/63 99 Room Air 01/07/17 23:20 2 Intake and Output 01/08/17 01/08/17 01/09/17 Cumulative From/Thru 15:00 23:00 07:00 01/07/17 15:11 - 01/09/17 05:50 Intake Total 2143 ml 1038 ml 6025 ml Output Total 1800 ml 1000 ml 4200 ml Balance 343 ml 38 ml 1825 ml Intake Oral 920 ml 1038 ml 2358 ml IV Total 1223 ml 3667 ml Output Urine Total 1800 ml 1000 ml 4200 ml # Bowel Movements 0 0 Lab & Micro Results Laboratory Tests Test 01/09/17 05:20 White Blood Count 6.9th/mm3 (3.8-10.1) Red Blood Count 2.77mil/mm3 (3.90-5.20) Hemoglobin 8.4g/dL (12.0-15.6) Hematocrit 26.6% (35.0-46.0) Mean Corpuscular Volume 96.0fL (81-100) Mean Corpuscular Hemoglobin 30.3pg (27.0-35.0) Mean Corpuscular Hemoglobin Concent 31.6% (32.0-37.0) Red Cell Distribution Width 12.2% (12.3-15.4) Platelet Count 187bil/L (150-400) Sodium Level 140mEq/L (134-144) Potassium Level 4.0mEq/L (3.5-5.2) Chloride Level 105mEq/L (97-108) Carbon Dioxide Level 24mmol/L (18-29) Blood Urea Nitrogen 7mg/dL (8-27) Creatinine 0.44mg/dL (0.57-1.00) Estimat Glomerular Filtration Rate 199mL/min (>59) Glucose Level 217mg/dL (60-99) Calcium Level 8.2mg/dL (8.5-10.1) Result Diagram: 01/09/1751901/09/17519 General Appearance: Alert, Oriented X3, Cooperative, No Acute Distress Extremities: No Compartment Syndrom Noted, Thigh & Calf Soft/Nontender Postop Sensory Motor: Distal Motor Intact, Movement in Toes, Distal Sensation Intact Activity: Activity per PT, Ambulate with PT (touch toe weightbearing only at the right lower extremity 4 week postop with use of front wheeled walker.) Catheters: None Assessment & Plan Impression Patient is a 76-year-old female seen today 2 days status post right hip long nail placement on 01/07/2017. She stood at the bedside on postop day 1 with physical therapy but otherwise has not pursued gait yet at this time. Nursing has made me aware that patient does not have a retirement facility benefit and is unable to pay for this so it is anticipated that she will discharged to home with spouse as caregiver. Problems: Plan Postop day #2 from right hip long IM nail placement on 01/07/[address] Luisito Sun. Touch toe weightbearing only on the right lower extremity 4 weeks postop using front wheeled walker. Continue formal physical therapy for mobility, gait and safety. Continue by mouth pain medication only. Continue Lovenox 40 mg subcutaneous daily 3 weeks postop transitioning to ASA 325 mg EC by mouth twice a day times an additional 3 weeks postop totaling 6 weeks postoperative DVT prophylaxis. Keep dressings clean dry and intact and change as needed. Keep wound clean and dry for 3-4 days and then dressing may be removed and wound may be showered if wound has been dry for 24 hours. Nursing please reapply SCDs bilaterally. Nursing please measure for and fit bilateral SACHA hose which will be ordered today. Follow-up in 2 weeks at [facility] orthopedic clinic with [facility] provider for wound check and suture removal. Follow-up in 6 weeks at [facility] orthopedic clinic with Dr. Luisito Sun with AP pelvis and right crosstable lateral hip x-ray on arrival. Orthopedics thanks hospitalist service for their help in the medical management of this patient. Patient spouse relates that they would be louie pay for retirement facility and cannot afford this. Anticipate discharge to home by hospitalist service on or before postop day #3, 01/10/2017 or when patient is determined to be medically stable for discharge. VTE Prophylaxis: Sub-Q Enoxaparin (Lovenox 40 mg subcutaneous daily 3 weeks postop with transition to ASA 325 mg EC by mouth twice a day for an additional 3 weeks totaling 6 weeks postoperative DVT prophylaxis.), SCDs (bilateral SCDs) , SACHA Hose (bilateral SACHA hose) Bijan Santamaria PA-C Jan 09, 2017 09:02
[2017-01-09] MEDS: HYDROmorphone 1 mg/mL Inj IVPUSH PRN (09:30)
[2017-01-09] MEDS: Insulin GLARgine 100 Unit/mL Syringe SUBQ SCH (12:15)
[2017-01-09] MEDS: 0.9% Sodium Chloride 1,000 ML IV SCH (13:06)
[2017-01-09 16:21] VITALS: BP 145/73; PULSE 89; RESP 17; O2SAT 98
--- NOTE | 2017-01-09 17:24 | NUR ---
Social Work: Assessment Data & Assessment: See initial Assessment. EMR reviewed. Patient is a 76 y/o Nepali speaking female that admitted to hospital with right hip fx per H&P. SW met with patient and full time staff interpreter to discuss dc plan, initial assessment complete and SW role explained. Patient is a self pay an goes to [facility] for PCP. Patient does not have VA or LTC benefits. Patient has a re-admit score of 1 no risk. Patient lives at home with family in a two story home with two steps to enter. patient's room is downstairs. Patient is independent at baseline and does not drive. Patient thinks that her son/ASH Schafer [phone] has purchased her a WC. PT is recommended SNF, but patient is unable to pay privately. Patient will discharge back home with family and her other daughter will come in town to offer more assistance once the patient is discharged. SW will continue to follow and assist patient throughout stay. Plan: Patient will discharge home with family assistance via POV. SW will continue to follow. Demarco Salcedo LMSW, KRUPA Addendum: 01/09/17 at 1734 by DEMARCO FORBES Amended: Links added.
--- NOTE | 2017-01-09 17:59 | NUR ---
Cary/Pain/Activity Cary out at 0600 this AM and pt able to void 300 by 0915. Pt had increasing pain after getting up and requested IV pain medications in addition to oral medications given. Bandage changed done by PA and new dressing is CDI with ice bag in place during shift. Pt declined to have more pain medication or get OOB despite asking about toileting multiple times. British speaking LASTING FLOORWORKER translated that pt was holding her urine because she was worried about pain when getting up. Discussed with pt she needs to get OOB and moving and she was agreeable and got to BSC. Oral pain meds given after and time written on board, so pt knows when to take next. She states she has no pain when not moving. Thigh high SACHA hose and SCD's in place. Pt had elevated temp this PM and was encouraged to use IS, called RT to do teaching with pt. Lantus given late this AM since dosing was changed and received late from pharmacy. Bed in low, call light in reach.
[2017-01-09 19:35] VITALS: BP 125/60; PULSE 65; RESP 17; O2SAT 96
--- NOTE | 2017-01-09 20:16 | PCM.PNMED ---
Subjective Date of Service Jan 09, 2017 Subjective Patient is seen and examined. She states that she is slightly constipated but does not want to take anything for it until she gets home. She also would like to go home on Thursday instead of tomorrow as her daughter is better able to help her. She does not think she snores at night. Her daughter brought her by mouth medications from home which includes lovastatin 20 mg. She is and she is endorsing pain with movement but states that her medications are controlling the pain well. Exam Vital Signs Vital Sign - Last Date Time Temp Pulse Resp B/P Pulse Ox O2 Delivery O2 Flow Rate FiO2 01/09/17 16:21 37.6 89 17 145/73 98 Room Air 01/07/17 23:20 2 Intake and Output 01/08/17 01/08/17 01/09/17 Cumulative From/Thru 15:00 23:00 07:00 01/07/17 15:11 - 01/09/17 05:50 Intake Total 2143 ml 1038 ml 6025 ml Output Total 1800 ml 1000 ml 4200 ml Balance 343 ml 38 ml 1825 ml Intake Oral 920 ml 1038 ml 2358 ml IV Total 1223 ml 3667 ml Output Urine Total 1800 ml 1000 ml 4200 ml # Bowel Movements 0 0 Exam General: NAD, laying in bed, HEENT: NCAT, poor dentition Eyes: [place] conjunctivae. No ptosis, PERRL Neck: No masses, trachea midline, no thyromegaly, right-sided mild JVD Lungs: CTA with normal respiratory effort, no crackles or wheezes CV: RRR, no murmurs/rubs/gallops, normal PMI GI: Soft, non-tender with no hepatosplenomegaly MSK: Normal gait and station, no digital cyanosis Skin: Warm and dry. Dressings appear clean and dry over her right hip Psych: A&O X3, with appropriate affect IVs and Medications IV Fluids Discontinue today Medications Reviewed: Medications were reviewed in detail Lab and Diagnostics Result Diagram: 01/09/1751901/09/17519 Assessment & Plan Assessment and Plan 76-year-old female with a right intertrochanteric fracture Right intertrochanteric fracture, present on admission., -Orthopedics consulted (Dr. Carver), she underwent surgical repair last night -Patient is currently on diabetic diet -Pain control with Dilaudid -. Postop Day #2 -- Encouraged incentive spirometry -- Cary is removed -- Encouraged PT/OT, patient states she plans to go home with son -- Orthopedics want a discharge tomorrow AM, patient would like to go home the day after. --Ortho recs: Postop day #2 from right hip long IM nail placement on 01/07/[address] Luisito Sun. Touch toe weightbearing only on the right lower extremity 4 weeks postop using front wheeled walker. Continue formal physical therapy for mobility, gait and safety. Continue by mouth pain medication only. Continue Lovenox 40 mg subcutaneous daily 3 weeks postop transitioning to ASA 325 mg EC by mouth twice a day times an additional 3 weeks postop totaling 6 weeks postoperative DVT prophylaxis. Keep dressings clean dry and intact and change as needed. Keep wound clean and dry for 3-4 days and then dressing may be removed and wound may be showered if wound has been dry for 24 hours. Nursing please reapply SCDs bilaterally. Nursing please measure for and fit bilateral SACHA hose which will be ordered today. Follow-up in 2 weeks at [facility] orthopedic clinic with [facility] provider for wound check and suture removal. Follow-up in 6 weeks at [facility] orthopedic clinic with Dr. Luisito Sun with AP pelvis and right crosstable lateral hip x-ray on arrival. Orthopedics thanks hospitalist service for their help in the medical management of this patient. Patient spouse relates that they would be louie pay for nursing home facility and cannot afford this. Anticipate discharge to home by hospitalist service on or before postop day #3, 01/10/2017 or when patient is determined to be medically stable for discharge. VTE Prophylaxis: Sub-Q Enoxaparin (Lovenox 40 mg subcutaneous daily 3 weeks postop with transition to ASA 325 mg EC by mouth twice a day for an additional 3 weeks totaling 6 weeks postoperative DVT prophylaxis.), SCDs (bilateral SCDs) , SACHA Hose (bilateral SACHA hose)" Diabetes -Follow up hemoglobin A1c: 9.4 -He started metformin today -Insulin sliding scale mild, also added Lantus 15 units daily -- Lovastatin home medications verified, continue atorvastatin here. FEN/GI -she can resume diabetic diet -Follow up labs in the morning -Continue IV fluids: Discontinued DVT prophylaxis Lovenox 40 subcutaneous daily Code Status: Full code Disposition due to patient's current condition she will stay greater than 2 midnight VTE Prophylaxis: Sub-Q Enoxaparin (Lovenox 40 mg subcutaneous daily 3 weeks postop with transition to ASA 325 mg EC by mouth twice a day for an additional 3 weeks totaling 6 weeks postoperative DVT prophylaxis.), SCDs (bilateral SCDs) , SACHA Hose (bilateral SACHA hose) VTE Mechanical Devices: Intermittant Pneumatic CD, Anti-Embolic stockings Zara Enamorado DO Jan 09, 2017 17:57
[2017-01-10] MEDS: hydrOXYzine Pamoate 25 mg Capsule PO PRN ×4 (03:16→18:45)
[2017-01-10] MEDS: HYDROcodone-APAP 5-325 mg Tablet PO PRN ×5 (03:17→20:48)
--- NOTE | 2017-01-10 04:15 | NUR ---
Pain/Activity Pt encouraged to get up to BSC, Pt did not tolerate well, very painful, did not want to participate and said it was too hard. After explaining that she needs to take pain meds in order for her to be able to get up to use commode and become mobile, she accepted. Pt received norco 2 tabs and 25mg of vistaril at 2 different times per prn schedule and this was very effective in controlling pain. Pt tolerated 2nd time up to BSC fairly well. Pt was afebrile this shift and reminded to use IS and deep breathe/cough.
[2017-01-10 05:08] VITALS: BP 105/55; PULSE 74; RESP 17; O2SAT 94
[2017-01-10] MEDS: 0.9% Sodium Chloride 250 ML IV SCH (08:50)
[2017-01-10] MEDS: Insulin GLARgine 100 Unit/mL Syringe SUBQ SCH (08:56)
[2017-01-10] MEDS: Insulin LISPRO 300 Unit/3 mL Inj SUBQ SCH ×4 (08:57→22:00)
[2017-01-10] MEDS: Sodium Chloride LOK Flush 10 mL Syringe IV SCH ×2 (08:59→17:11)
[2017-01-10] MEDS: Senna-Docusate 8.6-50 mg Tablet PO SCH ×2 (08:59→20:48)
[2017-01-10 12:43] VITALS: BP 124/61; PULSE 87; RESP 16
[2017-01-10 12:51] VITALS: PULSE 86
[2017-01-10 13:11] VITALS: BP 108/49; PULSE 97; RESP 16
--- NOTE | 2017-01-10 15:20 | NUR ---
Social Work: Readiness for Discharge Data and Assessment: Pt is at day 3 of hospitalization. At this point, pt has been unable to ambulate with PT and is requiring max assist with transfers. Anticipate this to be a barrier for pt's discharge as pt has no insurance and is unable to pay privately for SNF. Pt plans to return home with family. Son to work with PT this afternoon on training. SW will continue to follow. Plan: Pt to return home with family via POV. SW will continue to follow. BRAYDEN Kate
[2017-01-10 15:39] VITALS: BP 120/65; PULSE 86; RESP 18
--- NOTE | 2017-01-10 16:26 | PCM.PNORTH ---
Subjective Date of Service: Jan 10, 2017 Visit Information: Reason for Visit Right Hip Fracture Surgery/Surgery Date Right hip IM Nail / 01/07/2017 Post-Op Day # 3 Date of Admission: Jan 07, 2017 at 18:18 Hospital Day # Subjective Patient is progressing very slowly with PT. She has not yet ambulated. She is max assist with PT. Postop General: No Complaints, No Shortness of Breath, No Chest Pain Pain Management: PO Objective Exam Objective Patient is seen in bed Vital Signs and I/O Vital Sign - Last Date Time Temp Pulse Resp B/P Pulse Ox O2 Delivery O2 Flow Rate FiO2 01/10/17 15:39 36.9 86 18 120/65 01/10/17 05:08 94 Room Air 01/07/17 23:20 2 Intake and Output 01/09/17 01/09/17 01/10/17 Cumulative From/Thru 15:00 23:00 07:00 01/07/17 15:11 - 01/10/17 05:08 Intake Total 871 ml 1400 ml 400 ml 8696 ml Output Total 600 ml 950 ml 5750 ml Balance 871 ml 800 ml -550 ml 2946 ml Intake Oral 600 ml 400 ml 3358 ml IV Total 871 ml 800 ml 5338 ml Output Urine Total 600 ml 950 ml 5750 ml # Bowel Movements 0 0 0 Lab & Micro Results Laboratory Tests Test 01/10/17 05:15 Hemoglobin 7.5g/dL (12.0-15.6) Hematocrit 23.7% (35.0-46.0) Result Diagram: 01/10/17 0515 01/09/17 0520 General Appearance: Alert, Oriented X3, Cooperative Extremities: Distal Pulses Palpable, No Compartment Syndrom Noted, Thigh & Calf Soft/Nontender Postop Sensory Motor: Distal Motor Intact, NVI Distally SURGICAL WOUND : Wound Location/Description Right hip dressing intact Activity: Activity per PT, Ambulate with PT (touch toe weightbearing only at the right lower extremity 4 week postop with use of front wheeled walker.) Catheters: None Assessment & Plan Impression s/p Right hip IM nailing Problems: Plan Weightbearing: Touch toe weightbearing right lower extremity 4 weeks postop with front wheeled walker. Continue formal physical therapy for mobility, gait and safety. DVT prophylaxis: Lovenox 40 mg subcutaneous daily 3 weeks followed by ASA 325 mg EC by mouth twice a day times for an additional 3 weeks. Wound Care: change as needed. PA will change dressing on Thursday morning Post operative anemia - being transfused today Discharge plan: home tomorrow if medically stable. Follow-up in 2 weeks at [facility] orthopedic clinic with PA for wound check Follow-up in 6 weeks at [facility] orthopedic clinic with Dr. Luisito Sun with AP pelvis and right crosstable lateral hip x-ray on arrival. We appreciate the hospitalist service for their help in the medical management of this patient. Pain Management: yeyo Almeida VTE Prophylaxis: Sub-Q Enoxaparin (Lovenox 40 mg subcutaneous daily 3 weeks postop with transition to ASA 325 mg EC by mouth twice a day for an additional 3 weeks totaling 6 weeks postoperative DVT prophylaxis.), SCDs (bilateral SCDs) , SACHA Hose (bilateral SACHA hose) Resuscitation Status: CPR: Attempt Resuscitation Sherry Hamilton PA-C Jan 10, 2017 16:26
--- NOTE | 2017-01-10 17:33 | NUR ---
Pain / activity Family at bedside to assist with care and translation. Pt is reluctant to get out of bed even to use the BSC. Pt has been holding her urine to avoid getting out of bed. Explained to pt that she must get up and start moving more. Encouraged pt to take pain medication on regular basis so she is comfortable enough to move. Pt agrees, but is still hesitant to move her legs. Pt also worked with PT today. Care continues.
[2017-01-10 20:26] VITALS: BP 110/58; PULSE 91; RESP 16; O2SAT 92
--- NOTE | 2017-01-10 20:36 | PCM.PNMED ---
Subjective Date of Service Jan 10, 2017 Subjective Patient is seen and examined. She says her pain is under control. States she has experienced chills couple times last night. She denies abdominal pain. Denies shortness of breath states the pain is worse when she has to move. It appears she only took pain medication once today so far at 2 PM, 2 tablets of hydrocodone. She has no financial support to go to a [place] [facility] care facility or rehabilitation center and the plan for her is to go home to her son. PT OT is working with her in the room and she is a max assist for transfers. Exam Vital Signs Vital Sign - Last Date Time Temp Pulse Resp B/P Pulse Ox O2 Delivery O2 Flow Rate FiO2 01/10/17 05:08 36.5 74 17 105/55 94 Room Air 01/07/17 23:20 2 Intake and Output 01/09/17 01/09/17 01/10/17 Cumulative From/Thru 15:00 23:00 07:00 01/07/17 15:11 - 01/10/17 05:08 Intake Total 871 ml 1400 ml 400 ml 8696 ml Output Total 600 ml 950 ml 5750 ml Balance 871 ml 800 ml -550 ml 2946 ml Intake Oral 600 ml 400 ml 3358 ml IV Total 871 ml 800 ml 5338 ml Output Urine Total 600 ml 950 ml 5750 ml # Bowel Movements 0 0 0 Exam Gen.: No acute distress Heart: Regular rate and rhythm. Lungs: Clear to auscultation bilaterally no increased work of breathing Abdomen soft , nontende,r, nondistended, normal bowel sounds Musculoskeletal: She is able to move her feet but needed max assist to sit up on the side of the bed Psych negative for anxiety Neuro no focal deficits IVs and Medications Medications Reviewed: Medications were reviewed in detail Lab and Diagnostics Laboratory Tests Test 01/10/17 05:15 01/10/17 17:00 Hemoglobin 7.5g/dL (12.0-15.6) 9.4g/dL (12.0-15.6) Hematocrit 23.7% (35.0-46.0) 28.7% (35.0-46.0) Result Diagram: 01/09/1751901/09/17519 Assessment & Plan Assessment and Plan 76-year-old female with a right intertrochanteric fracture Right intertrochanteric fracture, present on admission., -Orthopedics consulted (Dr. Carver), she underwent surgical repair last night -Patient is currently on diabetic diet -Pain control with Dilaudid -. Postop Day #3 -- Encouraged incentive spirometry -- Cary is removed -- Encouraged PT/OT, patient states she plans to go home with son --Ortho recs: Postop day #2 from right hip long IM nail placement on 01/07/[address] Luisito Sun. "Touch toe weightbearing only on the right lower extremity 4 weeks postop using front wheeled walker. Continue formal physical therapy for mobility, gait and safety. Continue by mouth pain medication only. Continue Lovenox 40 mg subcutaneous daily 3 weeks postop transitioning to ASA 325 mg EC by mouth twice a day times an additional 3 weeks postop totaling 6 weeks postoperative DVT prophylaxis. Keep dressings clean dry and intact and change as needed. Keep wound clean and dry for 3-4 days and then dressing may be removed and wound may be showered if wound has been dry for 24 hours. Nursing please reapply SCDs bilaterally. Nursing please measure for and fit bilateral SACHA hose which will be ordered today. Follow-up in 2 weeks at [facility] orthopedic clinic with [facility] provider for wound check and suture removal. Follow-up in 6 weeks at [facility] orthopedic clinic with Dr. Luisito Sun with AP pelvis and right crosstable lateral hip x-ray on arrival. Orthopedics thanks hospitalist service for their help in the medical management of this patient. Patient spouse relates that they would be louie pay for [facility] facility and cannot afford this. Anticipate discharge to home by hospitalist service on or before postop day #3, 01/10/2017 or when patient is determined to be medically stable for discharge. VTE Prophylaxis: Sub-Q Enoxaparin (Lovenox 40 mg subcutaneous daily 3 weeks postop with transition to ASA 325 mg EC by mouth twice a day for an additional 3 weeks totaling 6 weeks postoperative DVT prophylaxis.), SCDs (bilateral SCDs) , SACHA Hose (bilateral SACHA hose)" Anemia secondary to blood loss that is inherent risk of orthopedic surgery: -- Patient is transfused 1 unit of PRBC, follow-up H&H has come up appropriately Diabetes -Follow up hemoglobin A1c: 9.4 -she started metformin yesterday -- Lovastatin home medications verified, continue atorvastatin here. -- Sugars are better controlled and 2 units of 3 times a day with meals Humalog +15 units long-acting, sliding scale FEN/GI -she can resume diabetic diet -Follow up labs in the morning -Continue IV fluids: Discontinued DVT prophylaxis Lovenox 40 subcutaneous daily Code Status: Full code Disposition due to patient's current condition she will stay greater than 2 midnight Pain Evaluation: Adequate Pain Control VTE Prophylaxis: Sub-Q Enoxaparin (Lovenox 40 mg subcutaneous daily 3 weeks postop with transition to ASA 325 mg EC by mouth twice a day for an additional 3 weeks totaling 6 weeks postoperative DVT prophylaxis.), SCDs (bilateral SCDs) , SACHA Hose (bilateral SACHA hose) VTE Mechanical Devices: Intermittant Pneumatic CD Zara Enamorado DO Jan 10, 2017 05:31
[2017-01-10] MEDS: Artificial Tears 15 mL Ophthalmic Solution BOTH_EYES PRN (23:08)
[2017-01-11] MEDS: Sodium Chloride LOK Flush 10 mL Syringe IV SCH ×3 (00:42→17:59)
[2017-01-11] MEDS: HYDROcodone-APAP 5-325 mg Tablet PO PRN ×3 (01:13→13:56)
[2017-01-11] MEDS: hydrOXYzine Pamoate 25 mg Capsule PO PRN ×3 (01:13→13:56)
--- NOTE | 2017-01-11 04:13 | NUR ---
Pain/Activity Pain has been controlled with PRN norco and vistaril this shift. Pt does experience increase in pain with movement, explained that it will be like that for a bit while she is healing but that she has to get up and move to decrease pain and prevent developing PNA. Encouraged incentive spirometer. Encouraged Pt to get up to BSC and not hold urine.
[2017-01-11] MEDS ORDERED: HYDR-4003 PO (05:29)
[2017-01-11] MEDS ORDERED: DOCU-41 PO (05:29)
[2017-01-11] MEDS ORDERED: ENOX40DI8 SUBQ (05:30)
[2017-01-11] MEDS ORDERED: ASPI325T32 PO (05:34)
[2017-01-11 05:36] VITALS: BP 137/61; PULSE 89; RESP 16; O2SAT 95
[2017-01-11 06:53] LABS: Mean Corpuscular Hemoglobin 29.9 pg (27.0-35.0); Mean Corpuscular Volume 93.6 fL (81-100)
[2017-01-11] MEDS: Insulin LISPRO 300 Unit/3 mL Inj SUBQ SCH ×4 (08:00→22:00)
[2017-01-11] MEDS: Senna-Docusate 8.6-50 mg Tablet PO SCH ×2 (08:24→20:15)
[2017-01-11] MEDS: Artificial Tears 15 mL Ophthalmic Solution BOTH_EYES PRN ×2 (08:29→15:20)
[2017-01-11] MEDS: Insulin GLARgine 100 Unit/mL Syringe SUBQ SCH (08:30)
[2017-01-11] MEDS: 0.9% Sodium Chloride 250 ML IV SCH (08:32)
[2017-01-11 13:15] VITALS: BP 145/70; PULSE 97; RESP 16; O2SAT 95
--- NOTE | 2017-01-11 14:09 | NUR ---
Mobility Pt getting OOB more frequently today with assistance from staff and her family. Movement and weight bearing is still painful for her, but she has no pain when lying still. Explained to pt and her family that she was not discharged today because the doctor did not feel it was safe for her to go home yet since she is having trouble bearing weight on her right leg. PT is recommending further rehab in a SNF. Pt will possibly discharge tomorrow, 01/12. Will continue monitoring pt's mobility and provide reinforcement of hip precautions as needed.
--- NOTE | 2017-01-11 14:17 | PCM.PNORTH ---
Subjective Date of Service: Jan 11, 2017 Visit Information: Reason for Visit Right Hip Fracture Surgery/Surgery Date right femur IM nail Post-Op Day # 4 Date of Admission: Jan 07, 2017 at 18:18 Hospital Day # Subjective The patient's son acts as slope runner. Patient states she only has pain when moving the leg. She has gotten out of bed multiple times to use a bedside commode. She is only taking 2 steps of physical therapy. She is progressing very slowly with physical therapy. Patient received a transfusion of 1 unit of blood yesterday. Postop General: No Complaints, No Shortness of Breath, No Chest Pain Pain Management: PO Objective Exam Objective Patient is seen sitting up in bed with her son and other family members at bedside Vital Signs and I/O Vital Sign - Last Date Time Temp Pulse Resp B/P Pulse Ox O2 Delivery O2 Flow Rate FiO2 01/11/17 13:15 36.9 97 16 145/70 95 Room Air 01/07/17 23:20 2 Intake and Output 01/10/17 01/10/17 01/11/17 Cumulative From/Thru 15:00 23:00 07:00 01/07/17 15:11 - 01/11/17 05:36 Intake Total 1124 ml 150 ml 9970 ml Output Total 400 ml 375 ml 6525 ml Balance 724 ml -225 ml 3445 ml Intake Oral 824 ml 150 ml 4332 ml IV Total 5338 ml Packed Cells 300 ml 300 ml Output Urine Total 400 ml 375 ml 6525 ml # Voids 1 1 # Bowel Movements 0 0 0 Lab & Micro Results Laboratory Tests Test 01/10/17 17:00 01/11/17 05:45 Hemoglobin 9.4g/dL (12.0-15.6) 8.9g/dL (12.0-15.6) Hematocrit 28.7% (35.0-46.0) 27.9% (35.0-46.0) White Blood Count 8.2th/mm3 (3.8-10.1) Red Blood Count 2.98mil/mm3 (3.90-5.20) Mean Corpuscular Volume 93.6fL (81-100) Mean Corpuscular Hemoglobin 29.9pg (27.0-35.0) Mean Corpuscular Hemoglobin Concent 31.9% (32.0-37.0) Red Cell Distribution Width 13.5% (12.3-15.4) Platelet Count 221bil/L (150-400) Result Diagram: 01/11/17 0545 01/09/17 0520 General Appearance: Alert, Oriented X3, Cooperative, No Acute Distress Extremities: Distal Pulses Palpable, No Compartment Syndrom Noted, Thigh & Calf Soft/Nontender Postop Sensory Motor: Distal Motor Intact, NVI Distally SURGICAL WOUND : Wound Location/Description Lateral right leg:: Dressings are removed. There are 3 wounds on the lateral aspect of the right leg. The wounds are cleansed with hydrogen peroxide. Jayro are intact. There is a small amount of serous drainage at the most proximal wound, as expected. There is minimal serous drainage at the other 2 wounds. There is no erythema seen. Swelling is present of the thigh. Calf is soft and nontender. Dressing is changed with dressing at the proximal 2 wounds , and 2 x 2 gauze and Tegaderm for the distal wound. Incision General Appearance: Jayro Dressing & Drainage Status: Changed Activity: Activity per PT, Ambulate with PT (touch toe weightbearing only at the right lower extremity 4 week postop with use of front wheeled walker.) Catheters: None Assessment & Plan Impression POD-4 status post right femur IM nail Problems: Plan Weightbearing: Touch toe weightbearing right lower extremity 4 weeks postop with front wheeled walker. Continue formal physical therapy for mobility, gait and safety. Patient is progressing very slowly with PT. DVT prophylaxis: Lovenox 40 mg subcutaneous daily 3 weeks postop followed by ASA 325 mg EC by mouth twice a day times for an additional 3 weeks. Wound Care: dressing changed by PA today. There is mild serous drainage from the most proximal wound, as expected. There is no erythema present. Post operative anemia - improved Discharge plan: discharge home when medically stable. Discharge instructions are reviewed with the patient and her family. They have a wheelchair and walker. On Thursday, the patient may shower if the wound has no drainage present. Wound may be uncovered to shower. Let soap and water run over the wound, pat dry and apply a new dressing. Follow-up in [address] [facility] [place] orthopedic clinic with PA for wound check Follow-up in [address] [facility] ([place], [place] orthopedic clinic with Dr. Luisito Sun with x-rays We appreciate the hospitalist service for their help in the medical management of this patient. Pain Management: Sawyer Almeida VTE Prophylaxis: Sub-Q Enoxaparin (Lovenox 40 mg subcutaneous daily 3 weeks postop with transition to ASA 325 mg EC by mouth twice a day for an additional 3 weeks totaling 6 weeks postoperative DVT prophylaxis.), SCDs (bilateral SCDs) , SACHA Hose (bilateral SACHA hose) Resuscitation Status: CPR: Attempt Resuscitation LindaSherry Farah PA-C Jan 11, 2017 14:17
--- NOTE | 2017-01-11 16:52 | PCM.DIORTH ---
Ortho Discharge Instruction Date of Service: Jan 11, 2017 Dates of Hospitalization Date of Hospital Admission Jan 07, 2017 at 18:18 Providers Admitting Physician: Cordelia Ramirez DO [facility] Attending [facility]ician: Cordelia Ramirez DO Diet Discharge Diet: Diabetic Activity Discharge Activity-General: Balance rest and activity, Elevate & ice extremity , Ice incision 3-5 time/day for 20min Right Lower Extremity: Toe-Touch Weight Bearing Discharge Assist Device: Front Wheeled Walker Dressing and Incisional Care Discharge Dressing Care: Keep dressing clean, dry & intact Discharge Hygiene: May shower (see instructions below) Additional Instructions Discharge Instructions Weightbearing: Touch toe weightbearing right lower extremity 4 weeks postop with front wheeled walker. DVT prophylaxis: Lovenox 40 mg subcutaneous daily 3 weeks postop followed by aspirin 325 mg enteric coated twice a day times for an additional 3 weeks. Wound Care: change dressing every 2 days with a large bandage at the top incision, and small bandages at the lower 2 incisions. On Thursday, the patient may shower if the wounds have no drainage present. Wound may be uncovered to shower. Let soap and water run over the wound, pat dry and apply a new dressing. Activity: out of bed to chair at least 3 times a day Wear the compression stockings for 1 month. May remove to shower, skin care or to wash them. Hang to dry. Follow Up Plan Follow Up Plan At [facility] with JENNI at 2 weeks postop, and with Dr. Sun at 4 weeks postop with x-rays Call your provider for: Fever, Chills, Shortness of breath, Vomitting, Drainage at incision, Wound redness Sherry Hamilton PA-C Jan 11, 2017 16:51
[2017-01-11 19:46] VITALS: BP 119/63; PULSE 93; RESP 16; O2SAT 94
--- NOTE | 2017-01-11 21:10 | PCM.PNMED ---
Subjective Date of Service Jan 11, 2017 Subjective Patient states she is doing slightly better than she did yesterday. She has no issues with fevers chills, nausea vomiting, dyspnea. She has still had no bowel movement, she did not want a laxative Exam Vital Signs Vital Sign - Last Date Time Temp Pulse Resp B/P Pulse Ox O2 Delivery O2 Flow Rate FiO2 01/11/17 19:46 36.9 93 16 119/63 94 Room Air 01/07/17 23:20 2 Intake and Output 01/10/17 01/10/17 01/11/17 Cumulative From/Thru 15:00 23:00 07:00 01/07/17 15:11 - 01/11/17 05:36 Intake Total 1124 ml 150 ml 9970 ml Output Total 400 ml 375 ml 6525 ml Balance 724 ml -225 ml 3445 ml Intake Oral 824 ml 150 ml 4332 ml IV Total 5338 ml Packed Cells 300 ml 300 ml Output Urine Total 400 ml 375 ml 6525 ml # Voids 1 1 # Bowel Movements 0 0 0 Exam General: NAD, laying in bed HEENT: NCAT, missing dentition Eyes: [place] conjunctivae. No ptosis Neck: No masses, trachea midline, no thyromegaly, negative for JVD Lungs: CTA with normal respiratory effort, no crackles or wheezes CV: RRR, no murmurs/rubs/gallops, normal PMI GI: Nondistended Skin: Warm and dry. Psych: A&O X3, with appropriate affect Neuro: No focal deficits Extremities negative for edema IVs and Medications IV Fluids None Medications Reviewed: Medications were reviewed in detail Lab and Diagnostics Laboratory Tests Test 01/11/17 05:45 White Blood Count 8.2th/mm3 (3.8-10.1) Red Blood Count 2.98mil/mm3 (3.90-5.20) Hemoglobin 8.9g/dL (12.0-15.6) Hematocrit 27.9% (35.0-46.0) Mean Corpuscular Volume 93.6fL (81-100) Mean Corpuscular Hemoglobin 29.9pg (27.0-35.0) Mean Corpuscular Hemoglobin Concent 31.9% (32.0-37.0) Red Cell Distribution Width 13.5% (12.3-15.4) Platelet Count 221bil/L (150-400) Result Diagram: 01/11/17 0545 01/09/17 0520 Assessment & Plan Assessment and Plan 76-year-old female with a right intertrochanteric fracture Right intertrochanteric fracture, present on admission., -Orthopedics consulted (Dr. Carver), she underwent surgical repair last night -Patient is currently on diabetic diet -Pain control with Dilaudid -. Postop Day #3 -- Encouraged incentive spirometry -- Cary is removed -- Encouraged PT/OT, patient states she plans to go home with son --Ortho recs: Postop day #2 from right hip long IM nail placement on 01/07/[address] Luisito Sun. "Touch toe weightbearing only on the right lower extremity 4 weeks postop using front wheeled walker. Continue formal physical therapy for mobility, gait and safety. Continue by mouth pain medication only. Continue Lovenox 40 mg subcutaneous daily 3 weeks postop transitioning to ASA 325 mg EC by mouth twice a day times an additional 3 weeks postop totaling 6 weeks postoperative DVT prophylaxis. Keep dressings clean dry and intact and change as needed. Keep wound clean and dry for 3-4 days and then dressing may be removed and wound may be showered if wound has been dry for 24 hours. Nursing please reapply SCDs bilaterally. Nursing please measure for and fit bilateral SACHA hose which will be ordered today. Follow-up in 2 weeks at [facility] orthopedic clinic with [facility] provider for wound check and suture removal. Follow-up in 6 weeks at [facility] orthopedic clinic with Dr. Luisito Sun with AP pelvis and right crosstable lateral hip x-ray on arrival. Orthopedics thanks hospitalist service for their help in the medical management of this patient. Patient spouse relates that they would be [facility]ie pay for [facility] facility and cannot afford this. Anticipate discharge to home by hospitalist service on or before postop day #3, 01/10/2017 or when patient is determined to be medically stable for discharge. VTE Prophylaxis: Sub-Q Enoxaparin (Lovenox 40 mg subcutaneous daily 3 weeks postop with transition to ASA 325 mg EC by mouth twice a day for an additional 3 weeks totaling 6 weeks postoperative DVT prophylaxis.), SCDs (bilateral SCDs) , SACHA Hose (bilateral SACHA hose)" -- PT/OT confirmed that patient is not able to move well enough independently. She has no health insurance, she is deemed a health risk to be discharged to home with her son support. We will continue to work with PT OT in the hospital setting Anemia secondary to blood loss that is inherent risk of orthopedic surgery: -- Patient is transfused 1 unit of PRBC, follow-up H&H has come up appropriately Diabetes -Follow up hemoglobin A1c: 9.4 -she started metformin yesterday -- Lovastatin home medications verified, continue atorvastatin here. -- Sugars are better controlled and 2 units of 3 times a day with meals Humalog +15 units long-acting, sliding scale FEN/GI -she can resume diabetic diet -Follow up labs in the morning -Continue IV fluids: Discontinued DVT prophylaxis Lovenox 40 subcutaneous daily Code Status: Full code Disposition due to patient's current condition she will stay greater than 2 midnight. Tan has signed off however, due to her inability to get insurance coverage for home health care or fdc care, she is deemed a risk for outpatient failure. We will continue to do physical therapy in the hospital setting Pain Evaluation: Adequate Pain Control VTE Prophylaxis: Sub-Q Enoxaparin (Lovenox 40 mg subcutaneous daily 3 weeks postop with transition to ASA 325 mg EC by mouth twice a day for an additional 3 weeks totaling 6 weeks postoperative DVT prophylaxis.), SCDs (bilateral SCDs) , SACHA Hose (bilateral SACHA hose) VTE Mechanical Devices: Intermittant Pneumatic CD Resuscitation Status: CPR: Attempt Resuscitation Zara Enamorado DO Jan 11, 2017 21:10
--- NOTE | 2017-01-12 01:06 | NUR ---
Continued care Patient denies CP, SOB, and abdominal discomfort at this time. Instructed to Deep breath and cough every hour while awake in addition to spirometer to keep lungs clear. Encouraged to ambulate short distance to BSC while maintaining proper form. Family in room.
[2017-01-12 05:34] VITALS: BP 121/68; PULSE 94; RESP 18; O2SAT 95
[2017-01-12] MEDS: Sodium Chloride LOK Flush 10 mL Syringe IV SCH ×3 (08:30→18:26)
--- NOTE | 2017-01-12 08:43 | PCM.PNORTH ---
Subjective Date of Service: Jan 12, 2017 Visit Information: Reason for Visit Right Hip Fracture Surgery/Surgery Date right hip IM nail 01/07/2017 Post-Op Day # 5 Date of Admission: Jan 07, 2017 at 18:18 Hospital Day # Subjective Patient complains of pain with motion of the right leg. Otherwise she is fairly comfortable Postop General: No Complaints, No Shortness of Breath, No Chest Pain, Good Appetite Pain Management: PO Objective Exam Objective Patient is seen lying in bed Vital Signs and I/O Vital Sign - Last Date Time Temp Pulse Resp B/P Pulse Ox O2 Delivery O2 Flow Rate FiO2 01/12/17 05:34 37.0 94 18 121/68 95 Room Air 01/07/17 23:20 2 Intake and Output 01/11/17 01/11/17 01/12/17 Cumulative From/Thru 15:00 23:00 07:00 01/07/17 15:11 - 01/12/17 05:34 Intake Total 820 ml 200 ml 54807 ml Output Total 700 ml 400 ml 7625 ml Balance 120 ml -200 ml 3365 ml Intake Oral 820 ml 200 ml 5352 ml IV Total 5338 ml Packed Cells 300 ml Output Urine Total 700 ml 400 ml 7625 ml # Voids 2 1 4 # Bowel Movements 1 0 1 Lab & Micro Results Laboratory Tests Test 01/12/17 05:30 Hemoglobin 9.2g/dL (12.0-15.6) Hematocrit 28.1% (35.0-46.0) Result Diagram: 01/12/17 0530 01/09/17 0520 General Appearance: Alert, Oriented X3, Cooperative, No Acute Distress Extremities: Distal Pulses Palpable, No Compartment Syndrom Noted, Thigh & Calf Soft/Nontender Postop Sensory Motor: Distal Motor Intact, NVI Distally SURGICAL WOUND : Wound Location/Description Lateral right leg: The 2 distal dressings are clean dry and intact. There is mild serous drainage at the proximal bandage. Activity: Activity per PT, Ambulate with PT (touch toe weightbearing only at the right lower extremity 4 week postop with use of front wheeled walker.) Catheters: None Assessment & Plan Impression POD #5 status post right hip IM nail Problems: Plan Weightbearing: Touch toe weightbearing right lower extremity 4 weeks postop with front wheeled walker. Continue formal physical therapy for mobility, gait and safety. Patient is progressing very slowly with PT. DVT prophylaxis: Lovenox 40 mg subcutaneous daily 3 weeks total postop followed by ASA 325 mg EC by mouth twice a day times for an additional 3 weeks. Wound Care: Nursing, please change proximal dressing prior to discharge. There is mild serous drainage from the most proximal wound, as expected. Discharge plan: discharge home when medically stable. Discharge instructions are reviewed with the patient and her family yesterday, including activity, wound care and showering instructions. They have a wheelchair and walker. On Thursday, the patient may shower if the wound has no drainage present. Wound may be uncovered to shower. Let soap and water run over the wound, pat dry and apply a new dressing. Prescriptions written for [place] and Vistaril. Lovenox written for 16 more days. Follow-up in 2 weeks at [facility] orthopedic clinic with JENNI for wound check Follow-up in 4 weeks at [facility] orthopedic clinic with Dr. Luisito Sun with x-rays Pain Management: [place], Vistaril VTE Prophylaxis: Sub-Q Enoxaparin (Lovenox 40 mg subcutaneous daily 3 weeks postop with transition to ASA 325 mg EC by mouth twice a day for an additional 3 weeks totaling 6 weeks postoperative DVT prophylaxis.), SCDs (bilateral SCDs) , SACHA Hose (bilateral SACHA hose) Resuscitation Status: CPR: Attempt Resuscitation Vega AltaSherry Farah PA-C Jan 12, 2017 08:43
[2017-01-12] MEDS: 0.9% Sodium Chloride 250 ML IV SCH (08:50)
[2017-01-12] MEDS: Insulin LISPRO 300 Unit/3 mL Inj SUBQ SCH ×4 (10:28→21:49)
[2017-01-12] MEDS: Insulin GLARgine 100 Unit/mL Syringe SUBQ SCH (10:29)
[2017-01-12] MEDS: Senna-Docusate 8.6-50 mg Tablet PO SCH ×2 (10:32→21:41)
[2017-01-12 12:06] VITALS: BP 127/58; PULSE 94; RESP 18; O2SAT 97
--- NOTE | 2017-01-12 16:00 | NUR ---
Social Work-continued d/c planning: Data:EMR Reviewed. Pt is on day 5 of hospitalization for right hip fracture per H&P. Pt is not medically stable. Pt does not have insurance and will not qualify. Family unable to pay privately for SNF. PT working with family on caregiving training for home. pt still max assist. SW attempted to follow up with family and pt, but RN in room. SW to follow up again tomorrow. SW will continue to follow. Assessment:Pt who will return home. Plan:Anticipate pt to discharge home when medically stable. SW to follow up with family tomorrow. PT working with family on caregiving training for home.SW will continue to follow. BRAYDEN Blake
[2017-01-12 16:05] VITALS: BP 120/68; PULSE 93; RESP 18; O2SAT 92
--- NOTE | 2017-01-12 19:42 | NUR ---
Activity Pt up to BS chair for meals today and BSC for voiding with FWW and SBA from family members. Tolerating well. Pt worked with PT today and encouraged pt to use walker and to ambulate more to regain strength. Pt states "only pain with movement and tolerable" per sport internship, no pain medications given all shift. Will continue to monitor with frequent rounds.
[2017-01-12 20:08] VITALS: BP 131/80; PULSE 69; RESP 20; O2SAT 96
--- NOTE | 2017-01-12 20:36 | PCM.PNMED ---
Subjective Date of Service Jan 12, 2017 Subjective Patient is seen and examined with the help senior policy associate. She has family members visiting in the room. She states that she is very slightly better today , as she is able to sit up to talk to her visitors. She is asking for a multivitamin to gain more strength. She had a bowel movement since I visited with her last time. Still has some pain with movement. She denies any other concerns Exam Vital Signs Vital Sign - Last Date Time Temp Pulse Resp B/P Pulse Ox O2 Delivery O2 Flow Rate FiO2 01/11/17 19:46 36.9 93 16 119/63 94 Room Air 01/07/17 23:20 2 Intake and Output 01/11/17 01/11/17 01/12/17 Cumulative From/Thru 15:00 23:00 07:00 01/07/17 15:11 - 01/11/17 18:44 Intake Total 820 ml 85652 ml Output Total 700 ml 7225 ml Balance 120 ml 3565 ml Intake Oral 820 ml 5152 ml IV Total 5338 ml Packed Cells 300 ml Output Urine Total 700 ml 7225 ml # Voids 2 3 # Bowel Movements 1 1 Exam Gen.: No acute distress, sitting up in chair HEENT: Normocephalic, atraumatic Heart: Regular rate and rhythmwithout murmurs Lungs: Clear to auscultation Extremities negative for edema to move lower extremities Neuro: Alert, no focal deficits Psych: Negative for anxiety IVs and Medications Medications Reviewed: Medications were reviewed in detail Lab and Diagnostics Laboratory Tests 72 Hours Test 01/10/17 05:15 01/10/17 17:00 01/11/17 05:45 01/12/17 05:30 Hemoglobin 7.5g/dL (12.0-15.6) 9.4g/dL (12.0-15.6) 8.9g/dL (12.0-15.6) 9.2g/dL (12.0-15.6) Hematocrit 23.7% (35.0-46.0) 28.7% (35.0-46.0) 27.9% (35.0-46.0) 28.1% (35.0-46.0) White Blood Count 8.2th/mm3 (3.8-10.1) Red Blood Count 2.98mil/mm3 (3.90-5.20) Mean Corpuscular Volume 93.6fL (81-100) Mean Corpuscular Hemoglobin 29.9pg (27.0-35.0) Mean Corpuscular Hemoglobin Concent 31.9% (32.0-37.0) Red Cell Distribution Width 13.5% (12.3-15.4) Platelet Count 221bil/L (150-400) Result Diagram: 01/11/17 0545 01/09/17 0520 Assessment & Plan Assessment and Plan 76-year-old female with a right intertrochanteric fracture Right intertrochanteric fracture, present on admission., -Orthopedics consulted (Dr. Carver), she underwent surgical repair last night -Patient is currently on diabetic diet -Pain control with Dilaudid -. Postop Day #3 -- Encouraged incentive spirometry -- [place] is removed -- Encouraged PT/OT, patient states she plans to go home with son --Ortho recs: Postop day #2 from right hip long IM nail placement on 01/07/[address] Luisito Sun. "Touch toe weightbearing only on the right lower extremity 4 weeks postop using front wheeled walker. Continue formal physical therapy for mobility, gait and safety. Continue by mouth pain medication only. Continue Lovenox 40 mg subcutaneous daily 3 weeks postop transitioning to ASA 325 mg EC by mouth twice a day times an additional 3 weeks postop totaling 6 weeks postoperative DVT prophylaxis. Keep dressings clean dry and intact and change as needed. Keep wound clean and dry for 3-4 days and then dressing may be removed and wound may be showered if wound has been dry for 24 hours. Nursing please reapply SCDs bilaterally. Nursing please measure for and fit bilateral SACHA hose which will be ordered today. Follow-up in 2 weeks at [facility] orthopedic clinic [facility] provider for wound check and suture removal. Follow-up in 6 weeks at [facility] orthopedic clinic with Dr. Luisito Sun with AP pelvis and right crosstable lateral hip x-ray on arrival. Orthopedics thanks hospitalist service for their help in the medical management of this patient. Patient spouse relates that they would be louie pay for [facility] facility and cannot afford this. Anticipate discharge to home by hospitalist service on or before postop day #3, 01/10/2017 or when patient is determined to be medically stable for discharge. VTE Prophylaxis: Sub-Q Enoxaparin (Lovenox 40 mg subcutaneous daily 3 weeks postop with transition to ASA 325 mg EC by mouth twice a day for an additional 3 weeks totaling 6 weeks postoperative DVT prophylaxis.), SCDs (bilateral SCDs) , SACHA Hose (bilateral SACHA hose)" -- PT/OT confirmed that patient is not able to move well enough independently. She has no health insurance, she is deemed a health risk to be discharged to home with her son support. We will continue to work with PT OT in the hospital setting -- Improving -- PT/OT 01/12 "Daughter present and able demo safe t/f to EOB, STS w/ FWW and pt. SBA TTWB t/f to chair w/ FWW. Pt. would benefit from further strengthening and safe functional mobility. Anticipate discharge home with family. " Anemia secondary to blood loss that is inherent risk of orthopedic surgery: -- Patient is transfused 1 unit of PRBC, follow-up H&H has come up appropriately -- H&H remains stable 01/12 -- Iron panel, B12, folate, reticulocyte count, H&H are ordered for tomorrow Diabetes -Follow up hemoglobin A1c: 9.4 -she started metformin -- Lovastatin home medications verified, continue atorvastatin here. -- Sugars are better controlled and 2 units of 3 times a day with meals Humalog +15 units long-acting, sliding scale FEN/GI -she can resume diabetic diet -Follow up labs in the morning -Continue IV fluids: Discontinued DVT prophylaxis Lovenox 40 subcutaneous daily Code Status: Full code Disposition due to patient's current condition she will stay greater than 2 midnight. Tan has signed off however, due to her inability to get insurance coverage for home health care or [facility] care, she is deemed a risk for outpatient failure. We will continue to do physical therapy in the hospital setting. PT/OT still recommending discharge to SNF Pain Evaluation: Adequate Pain Control VTE Prophylaxis: Sub-Q Enoxaparin (Lovenox 40 mg subcutaneous daily 3 weeks postop with transition to ASA 325 mg EC by mouth twice a day for an additional 3 weeks totaling 6 weeks postoperative DVT prophylaxis.), SCDs (bilateral SCDs) , SACHA Hose (bilateral SACHA hose) VTE Mechanical Devices: Intermittant Pneumatic CD Resuscitation Status: CPR: Attempt Resuscitation Zara Enamorado DO Jan 12, 2017 05:34
[2017-01-12] MEDS: Artificial Tears 15 mL Ophthalmic Solution BOTH_EYES PRN (21:47)
[2017-01-13] MEDS: Sodium Chloride LOK Flush 10 mL Syringe IV SCH ×4 (00:24→23:26)
--- NOTE | 2017-01-13 02:24 | NUR ---
Activity Pt up out of bed to chair for meal at start of shift- dinner provided by family, pt appears to have good appetite and no n/v. Blood sugar 229 and pt given 1 unit insulin at HS. Pt denies ice to hip or pain, dressing is CDI. Denies SOB or chest pain, LS and HS clear, No edema bilaterally. CSM intact. Daughter remains in room this shift and assists with communication. Family assist pt to commode and into bed, not witnessed by staff- Reminded for need to ambulate with PT in the morning. Care continues
[2017-01-13 05:19] VITALS: BP 106/76; PULSE 71; RESP 18; O2SAT 98
[2017-01-13 06:12] LABS: Unsaturated Iron Binding 126.6 ug/dL
[2017-01-13 08:23] VITALS: BP 133/69; PULSE 89; RESP 18; O2SAT 93
[2017-01-13] MEDS: Insulin GLARgine 100 Unit/mL Syringe SUBQ SCH (08:36)
[2017-01-13] MEDS: Insulin LISPRO 300 Unit/3 mL Inj SUBQ SCH ×4 (08:37→21:02)
[2017-01-13] MEDS: Senna-Docusate 8.6-50 mg Tablet PO SCH ×2 (08:48→21:02)
[2017-01-13] MEDS: 0.9% Sodium Chloride 250 ML IV SCH (08:50)
[2017-01-13 12:50] VITALS: BP 114/63; PULSE 82; RESP 18; O2SAT 100
--- NOTE | 2017-01-13 16:18 | NUR ---
Social work-readiness for discharge: Data:EMR reviewed. pt is on day 6 of hospitalization for right hip fracture per h&P. Pt is not medically stable anticipate 1-2 days. SW met with pt and daughter at bedside with radiotelegraph operator servicer to discuss discharge planning, SW role explained. Pt's daughter just arrived from [place] and will be staying with pt 24/7 at home. If this daughter has to go somewhere another family member will be there. PT is room also working with pt and daughter on training. Pt has fww and w/c for home use. Family to obtain gait belt.SW also provided pt and family with [employer] [facility] application. SW will continue to follow. Assessment:pt to have 24/7 assist at home. Plan;Pt to discharge home with family to provide 24/7 care. Pt has Fww and w.c for home. Pt does not have insurance and cannot pay privately for SNF.SW will continue to follow. BRAYDEN Blake Addendum: 01/14/17 at 0845 by SEGUNDO IBARRA SS family also has BSC for home. BRAYDEN Blake
--- NOTE | 2017-01-13 17:50 | PCM.PNMED ---
Subjective Date of Service Jan 13, 2017 Subjective Patient is much better, sitting up most of the time. She says she is feeling much better , is using less help to get up from her bed and transfers . No other concerns. PT is continuing to work with her , PT continue to recommend D/ C to SNF with PT/OT services. Exam Vital Signs Vital Sign - Last Date Time Temp Pulse Resp B/P Pulse Ox O2 Delivery O2 Flow Rate FiO2 01/13/17 12:50 36.8 82 18 114/63 100 Room Air 01/07/17 23:20 2 Intake and Output 01/12/17 01/12/17 01/13/17 Cumulative From/Thru 15:00 23:00 07:00 01/07/17 15:11 - 01/13/17 05:19 Intake Total 200 ml 650 ml 41376 ml Output Total 300 ml 7925 ml Balance -100 ml 650 ml 3915 ml Intake Oral 200 ml 650 ml 6202 ml IV Total 5338 ml Packed Cells 300 ml Output Urine Total 300 ml 7925 ml # Voids 3 7 # Bowel Movements 0 1 Exam General: NAD, laying in bed, some what dyspneic male HEENT: NCAT, poor dentition Eyes: [place] conjunctivae. No ptosis, Neck: No masses, trachea midline, no thyromegaly Lungs: CTA with normal respiratory effort, no crackles or wheezes CV: RRR, no murmurs/rubs/gallops, normal PMI GI: Nondistended MSK: no digital cyanosis Skin: Warm and dry. Psych: A&O X3, with appropriate affect IVs and Medications IV Fluids None Medications Reviewed: Medications were reviewed in detail Lab and Diagnostics Result Diagram: 01/13/17 0510 01/09/17 0520 Assessment & Plan Assessment and Plan 76-year-old female with a right intertrochanteric fracture Right intertrochanteric fracture, present on admission., -Orthopedics consulted (Dr. Carver), she underwent surgical repair last night -Patient is currently on diabetic diet -Pain control with Dilaudid -. Postop Day #3 -- Encouraged incentive spirometry -- Cary is removed -- Encouraged PT/OT, patient states she plans to go home with son --Ortho recs: Postop day #2 from right hip long IM nail placement on 01/07/[address] Luisito Sun. "Touch toe weightbearing only on the right lower extremity 4 weeks postop using front wheeled walker. Continue formal physical therapy for mobility, gait and safety. Continue by mouth pain medication only. Continue Lovenox 40 mg subcutaneous daily 3 weeks postop transitioning to ASA 325 mg EC by mouth twice a day times an additional 3 weeks postop totaling 6 weeks postoperative DVT prophylaxis. Keep dressings clean dry and intact and change as needed. Keep wound clean and dry for 3-4 days and then dressing may be removed and wound may be showered if wound has been dry for 24 hours. Nursing please reapply SCDs bilaterally. Nursing please measure for and fit bilateral SACHA hose which will be ordered today. Follow-up in [address] [facility] orthopedic clinic with [facility] provider for wound check and suture removal. Follow-up in [address] [facility] orthopedic clinic with Dr. Luisito Sun with AP pelvis and right crosstable lateral hip x-ray on arrival. Orthopedics thanks hospitalist service for their help in the medical management of this patient. Patient spouse relates that they would be louie pay for fpc facility and cannot afford this. Anticipate discharge to home by hospitalist service on or before postop day #3, 01/10/2017 or when patient is determined to be medically stable for discharge. VTE Prophylaxis: Sub-Q Enoxaparin (Lovenox 40 mg subcutaneous daily 3 weeks postop with transition to ASA 325 mg EC by mouth twice a day for an additional 3 weeks totaling 6 weeks postoperative DVT prophylaxis.), SCDs (bilateral SCDs) , SACHA Hose (bilateral SACHA hose)" -- PT/OT confirmed that patient is not able to move well enough independently. She has no health insurance, she is deemed a health risk to be discharged to home with her son support. We will continue to work with PT OT in the hospital setting -- Improving -- PT/OT 01/12 "Daughter present and able demo safe t/f to EOB, STS w/ FWW and pt. SBA TTWB t/f to chair w/ FWW. Pt. would benefit from further strengthening and safe functional mobility. Anticipate discharge home with family. " Anemia secondary to blood loss that is inherent risk of orthopedic surgery: -- Patient is transfused 1 unit of PRBC, follow-up H&H has come up appropriately -- H&H remains stable 01/12 -- Iron panel, B12, folate, reticulocyte count, H&H are ordered for tomorrow -- She appears to have iron deficiency anemia and chronic disease combined picture: Initiated iron supplementation Diabetes -Follow up hemoglobin A1c: 9.4 -she started metformin -- Lovastatin home medications verified, continue atorvastatin here. -- Sugars are better controlled and 2 units of 3 times a day with meals Humalog +15 units long-acting, sliding scale FEN/GI -she can resume diabetic diet -Follow up labs in the morning -Continue IV fluids: Discontinued DVT prophylaxis Lovenox 40 subcutaneous daily Code Status: Full code Disposition due to patient's current condition she will stay greater than 2 midnight. Tan has signed off however, due to her inability to get insurance coverage for home health care or detention care, she is deemed a risk for outpatient failure. We will continue to do physical therapy in the hospital setting. PT/OT still recommending discharge to SNF VTE Prophylaxis: Sub-Q Enoxaparin (Lovenox 40 mg subcutaneous daily 3 weeks postop with transition to ASA 325 mg EC by mouth twice a day for an additional 3 weeks totaling 6 weeks postoperative DVT prophylaxis.), SCDs (bilateral SCDs) , SACHA Hose (bilateral SACHA hose) VTE Mechanical Devices: Intermittant Pneumatic CD Resuscitation Status: CPR: Attempt Resuscitation Zara Enamorado DO Jan 13, 2017 17:50 setting. PT/OT still recommending discharge to SNF VTE Prophylaxis: Sub-Q Enoxaparin (Lovenox 40 mg subcutaneous daily 3 weeks postop with transition to ASA 325 mg EC by mouth twice a day for an additional 3 weeks totaling 6 weeks postoperative DVT prophylaxis.), SCDs (bilateral SCDs) , SACHA Hose (bilateral SACHA hose) VTE Mechanical Devices: Intermittant Pneumatic CD Resuscitation Status: CPR: Attempt Resuscitation Zara Enamorado DO Jan 13, 2017 17:50
--- NOTE | 2017-01-13 19:01 | NUR ---
Mobility- Up with standby assist to chair and bathroom. Family in room and assisting with most of patient's care. Patient denies discomfort, and has not needed med for pain.
[2017-01-13 20:40] VITALS: BP 114/58; PULSE 94; RESP 18; O2SAT 98
[2017-01-14 04:41] VITALS: BP 132/55; PULSE 81; RESP 16; O2SAT 94
[2017-01-14] MEDS: Sodium Chloride LOK Flush 10 mL Syringe IV SCH ×2 (08:30→16:19)
[2017-01-14 08:33] VITALS: BP 137/73; PULSE 91; RESP 18; O2SAT 95
[2017-01-14] MEDS: 0.9% Sodium Chloride 250 ML IV SCH (08:50)
[2017-01-14] MEDS: Insulin LISPRO 300 Unit/3 mL Inj SUBQ SCH ×3 (08:54→17:39)
[2017-01-14] MEDS: Insulin GLARgine 100 Unit/mL Syringe SUBQ SCH (08:55)
[2017-01-14] MEDS: Senna-Docusate 8.6-50 mg Tablet PO SCH (08:58)
--- NOTE | 2017-01-14 12:16 | NUR ---
Social work-readiness for discharge: Data:EMR reviewed. pt is on day 7 of hospitalization for right hip fracture per H&P. Pt is medically stable for discharge. MD will discharge pt once she is able to transfer for bed to chair with min assist. Pt's daughter is here from [place] to stay with pt and provide 24/7 care. PT working with family on training for home. Pt's family has arranged for BSC, Fww and W/C for pt at home. Due to pt not having insurance she is not eligible for any services and cannot pay privately for SNF. Pt's family to provide transport home. SW will continue to follow. Assessment:pt to have 24/7 assist at home. Plan;Pt to discharge home with family to provide 24/7 care. MD to discharge once pt is able to transfer Min assist from bed to chair. Pt has Fww,BSC, and w/c for home. Pt does not have insurance and cannot pay privately for SNF.SW will continue to follow. BRAYDEN Blake
--- NOTE | 2017-01-14 15:24 | NUR ---
Evaluation completed. Please go to "Notes" then click on "Assessments and Notes" (bottom left corner of screen). Then select appropriate discipline tab on top of screen.
[2017-01-14 16:49] VITALS: BP 130/56; RESP 18; O2SAT 96
[2017-01-14] MEDS ORDERED: FERR-74 PO (18:25)
--- NOTE | 2017-01-14 18:27 | PCM.DIMED ---
Discharge Instructions Date of Service Jan 14, 2017 Dates of Hospitalization Jan 07, 2017 at 18:18 Discharge Diagnosis Discharge Diagnosis R intertrochanteric fracture s/p Right hip intramedullary nailing, long nail., DM2, Iron Def Anemia Medication Instructions Iron supplement Diet Diabetic Activity Home Health Phyical Therapy (Family to provide home health based on PT/OT instructions) Call your provider Fever or Chills, Shortness of breath, Bleeding, Chest pain, Vomitting, Excessive diarrhea, Weakness (unilateral), Other Patient Instructions Follow-up plan F/U with PCP in 2 weeks F/U CBC, Iron. TIBC, Ferritin in one month, send to PCP F/U with Dr. Sun in 2 weeks Zara Enamorado DO Jan 14, 2017 18:27
--- NOTE | 2017-01-14 20:46 | NUR ---
Discharge automotive parts interpreter used for discharge instructions. Went over Lovenox teaching, wound care, and weight bearing status. Went up over follow up appts. Family at bedside as well. No questions from patient or family. Hard copy of prescriptions given to patient. Belongings taken with family. Family helped patient out to vehicle using wheel chair. IV removed on previous shift.
--- NOTE | 2017-01-15 09:04 | PCM.DC.MED ---
Discharge Summary Date of Service Jan 14, 2017 Dates of Hospitalization Date of Hospital Admission Jan 07, 2017 at 18:18 Date of Discharge: Jan 14, 2017 Providers: Admitting Physician: Cordelia Ramirez DO Primary Care Physician: [facility] [place] Attending Physician: Cordelia Ramirez DO Diagnosis at Time of Discharge Diagnosis at Time of Discharge R intertrochanteric fracture s/p Right hip intramedullary nailing, long nail., DM2, Iron Def Anemia Consultations Orthopedic Surgery, PT/OT Procedures XRay, CTs & MRIs PROCEDURE: X-RAY CHEST ONE VIEW, PORTABLE ([id number]) INDICATIONS: pre-op IMPRESSION: No acute process. Dictated by: Roosevelt Rodriguez M.D. on 01/07/2017 at 16:59 Approved by: Roosevelt Rodriguez M.D. on 01/07/2017 at 16:59 PROCEDURE: X-RAY RIGHT HIP COMPLETE, MINIMUM TWO VIEWS ([id number]) INDICATIONS: fall, pain IMPRESSION: Intertrochanteric hip fracture. Dictated by: Roosevelt Rodriguez M.D. on 01/07/2017 at 16:24 Approved by: Roosevelt Rodriguez M.D. on 01/07/2017 at 16:24 Invasive Procedures right hip long IM nail placement on 01/07/[address] Luisito Sun. Brief History Patient is a 76-year-old Sami-speaking female who presents from home status post fall. Patient stated that she was walking around the house and tripped over the carpet and ended up falling on her right hip. The patient's family took her to the emergency room immediately and at that time they found that she had an intertrochanteric fracture of the right hip. Patient reports right hip pain and states that she was not dizzy, does not have any chest pain, or shortness of breath. Hospital Course Assessment and Plan 76-year-old female with a right intertrochanteric fracture Right intertrochanteric fracture, present on admission., -Orthopedics consulted (Dr. Carver), she underwent surgical repair last night -Patient is currently on diabetic diet -Pain control with Dilaudid -. Postop Day #3 -- Encouraged incentive spirometry -- [place] is removed -- Encouraged PT/OT, patient states she plans to go home with son. She has a female relative who has the PT/OT exercise sheet prepared by the [facility] PT team in [place]. She feels she can guide patient with therapy. Ortho recs: Follow-up in 2 weeks at [facility] orthopedic clinic with [facility] provider for wound check and suture removal. Follow-up in 6 weeks at [facility] orthopedic clinic with Dr. Luisito Sun with AP pelvis and right crosstable lateral hip x-ray on arrival. Orthopedics thanks hospitalist service for their help in the medical management of this patient. Patient spouse relates that they would be louie pay for care home facility and cannot afford this. Anticipate discharge to home by hospitalist service on or before postop day #3, 01/10/2017 or when patient is determined to be medically stable for discharge. VTE Prophylaxis: Sub-Q Enoxaparin (Lovenox 40 mg subcutaneous daily 3 weeks postop with transition to ASA 325 mg EC by mouth twice a day for an additional 3 weeks totaling 6 weeks postoperative DVT prophylaxis.), SCDs (bilateral SCDs) , SACHA Hose (bilateral SACHA hose)" -- PT/OT confirmed today that patient is much improved, she can go home on home care health. -- Improving -- Anemia secondary to blood loss that is inherent risk of orthopedic surgery: -- Patient is transfused 1 unit of PRBC, follow-up H&H has come up appropriately -- H&H remains stable 01/12 -- Iron panel, B12, folate, reticulocyte count, H&H are ordered for tomorrow -- She appears to have iron deficiency anemia and chronic disease combined picture: Initiated iron supplementation Diabetes -Follow up hemoglobin A1c: 9.4 -she started metformin -- Lovastatin home medications verified, continue atorvastatin here. -- Sugars are better controlled and 2 units of 3 times a day with meals Humalog +15 units long-acting, sliding scale FEN/GI -she can resume diabetic diet -Follow up labs in the morning -Continue IV fluids: Discontinued DVT prophylaxis Lovenox 40 subcutaneous daily Code Status: Full code Disposition due to patient's current condition she will stay greater than 2 midnight. Tan has signed off however, due to her inability to get insurance coverage for home health care or assisted care, she is deemed a risk for outpatient failure. We Continued PT/OT in the hospital in addition to her 3 days postop. She is much improved now and has extra support from her relatives who can use the PT/OT instructions to help her with physical therapy Exam Vital Signs (Last) Date Time Temp Pulse Resp B/P Pulse Ox O2 Delivery O2 Flow Rate FiO2 01/14/17 16:49 36.8 18 130/56 96 01/14/17 14:12 Room Air 01/14/17 08:33 91 Exam General: NAD, laying in bed, some what dyspneic male HEENT: NCAT, poor dentition Eyes: [place] conjunctivae. No ptosis, Neck: No masses, trachea midline, no thyromegaly Lungs: CTA with normal respiratory effort, no crackles or wheezes CV: RRR, no murmurs/rubs/gallops, normal PMI GI: Nondistended MSK: no digital cyanosis Skin: Warm and dry. Psych: A&O X3, with appropriate affect Test 01/07/17 16:42 01/07/17 18:32 01/08/17 05:17 01/09/17 05:20 Prothrombin Time 10.8sec (8.1-12.5) Prothromb Time International Ratio 1.01ratio Hemoglobin A1c 9.4% (4.8-5.6) Magnesium Level 2.1mg/dL (1.6-2.6) Hold Gutierrez Top Tube Received (Received) Hold Urine Received (Received) Neutrophils (%) (Auto) 67.5% (40-74) Lymphocytes (%) (Auto) 21.5% (14-46) Monocytes (%) (Auto) 10.7% (4-12) Eosinophils (%) (Auto) 0% (0-5) Basophils (%) (Auto) 0.2% (0-3) Total Bilirubin 0.2mg/dL (0.0-1.2) Aspartate Amino Transf (AST/SGOT) 24U/L (0-50) Alanine Aminotransferase (ALT/SGPT) 17U/L (0-32) Alkaline Phosphatase 67U/L (25-165) Total Protein 5.3g/dL (6.4-8.4) Albumin 2.9g/dL (3.4-5.0) Sodium Level 140mEq/L (134-144) Potassium Level 4.0mEq/L (3.5-5.2) Chloride Level 105mEq/L (97-108) Carbon Dioxide Level 24mmol/L (18-29) Blood Urea Nitrogen 7mg/dL (8-27) Creatinine 0.44mg/dL (0.57-1.00) Estimat Glomerular Filtration Rate 199mL/min (>59) Glucose Level 217mg/dL (60-99) Calcium Level 8.2mg/dL (8.5-10.1) Test 01/11/17 05:45 01/12/17 05:30 01/13/17 05:10 White Blood Count 8.2th/mm3 (3.8-10.1) Red Blood Count 2.98mil/mm3 (3.90-5.20) Mean Corpuscular Volume 93.6fL (81-100) Mean Corpuscular Hemoglobin 29.9pg (27.0-35.0) Mean Corpuscular Hemoglobin Concent 31.9% (32.0-37.0) Red Cell Distribution Width 13.5% (12.3-15.4) Platelet Count 221bil/L (150-400) Reticulocyte Count,Calculated 2.6% (0.6-2.6) Hemoglobin 9.6g/dL (12.0-15.6) Hematocrit 29.7% (35.0-46.0) Iron Level 72ug/dL (35-150) Total Iron Binding Capacity 199ug/dL (250-450) Percent Iron Saturation 36%sat (15-50) Unsaturated Iron Binding 126.6ug/dL Ferritin 127ng/mL (13-150) Vitamin B12 Level 437pg/mL (211-946) Folate 15.2ng/mL (>3.0) Discharge Medications Discharge Medications Aspirin (Aspirin) 325 Mg Tablet 325 MG PO BID Prescribed by: ZARA AGUILAR DO Cholecalciferol (Vitamin D3) (Vitamin D) 1,000 Unit Capsule 1,000 UNIT PO DAILY (Reported) Docusate Sodium (Colace) 100 Mg Capsule 100 MG PO BID Prescribed by: ZARA AGUILAR DO Enoxaparin Sodium (Enoxaparin Sodium) 40 Mg/0.4 Ml Syringe 40 MG SUBQ Q24 Prescribed by: ZARA AGUILAR DO Ferrous Sulfate (Feosol) 325 Mg Tablet 325 MG PO BIDWM Prescribed by: ZARA AGUILAR DO Glipizide (Glipizide) 10 Mg Tablet 10 MG PO BID (Reported) Insulin Detemir (Levemir U100 Insulin Vial) 100 Unit/1 Ml Vial 15 UNIT SUBQ DAILY (Reported) Lovastatin (Lovastatin) 20 Mg Tablet 20 MG PO HS (Reported) Metformin (Metformin) 500 Mg Tablet 1,000 MG PO BID (Reported) As needed Hydrocodone-Acetaminophen 5-325 mg (Hydrocodone-Acetaminophen 5-325 mg) 1 Each Tablet 1-2 TABLET PO Q4H PRN PRN For Moderate Pain Prescribed by: ZARA AGUILAR DO Additional med instructions Iron supplement Followup Plan Follow-up plan F/U with PCP in 2 weeks F/U CBC, Iron. TIBC, Ferritin in one month, send to PCP F/U with Dr. Sun in 2 weeks Discharge Diet: Diabetic Discharge Activity: Home Health Phyical Therapy (Family to provide home health based on PT/OT instructions) Zara Aguilar DO Jan 14, 2017 18:36 F/U with PCP in 2 weeks F/U CBC, Iron. TIBC, Ferritin in one month, send to PCP F/U with Dr. Sun in 2 weeks Discharge Diet: Diabetic Discharge Activity: Home Health Phyical Therapy (Family to provide home health based on PT/OT instructions) Zara Aguilar DO Jan 14, 2017 18:36
== END 2017-01-14 20:09 | disposition home or self-care (01) | DRG 308 ==
LOC: SED 15:11 → EDBD 15:11 → OSC 18:18
PROVIDERS: ADMIT Neuromusculoskeletal Medicine & OMM; ATTEND Neuromusculoskeletal Medicine & OMM
PROC: 0QS636Z Reposition Right Upper Femur with Intramedullary Internal Fixation Device, Percutaneous Approach (ICD-10-PCS; principal; 2017-01-07 19:30)
PROC: 30233N1 Transfusion of Nonautologous Red Blood Cells into Peripheral Vein, Percutaneous Approach (ICD-10-PCS; 2017-01-10)
DX: S72.141A Displaced intertrochanteric fracture of right femur, initial encounter for closed fracture (principal); D62 Acute posthemorrhagic anemia; E11.9 Type 2 diabetes mellitus without complications; I25.10 Atherosclerotic heart disease of native coronary artery without angina pectoris; W01.0XXA Fall on same level from slipping, tripping and stumbling without subsequent striking against object, initial encounter; Z79.4 Long term (current) use of insulin; Z79.84 Long term (current) use of oral hypoglycemic drugs; Y92.002 Bathroom of unspecified non-institutional (private) residence as the place of occurrence of the external cause